=== PATIENT | female | born 1990 | race Caucasian/White ===

== ENCOUNTER → 2019-03-07 13:45 | Outpatient (CLI) | payer OTHER, SELFPAY ==
[2019-03-07 11:28] VITALS: BMI 22.8
[2019-03-07 14:08] LABS: Absolute Lymphocyte Count 2.04 X10^3/uL (0.83-4.51); Absolute Neutrophil Count 6.4 X10^3/uL (2.0-7.7); Basophil# 0.04 X10^3/uL; Basophil% 0.4 % (0-1); Eosinophil# 0.12 X10^3/uL; Eosinophils% 1.3 % (0-5); Hemoglobin 12.2 g/dL (12.0-15.0); Lymphocyte # 2.04 X10^3/ul (4.0); Lymphocyte % 22.4 % (19-41); Mean Corp Hgb Conc 33.9 g/dL (32-36); Mean Corpuscular Hgb 30.3 pg (27.0-32.0); Mean Corpuscular Volume 89.3 fL (81-99); Mean Platelet Vol. 10.1 fl (6.2-12.0); Monocyte# 0.47 X10^3/uL; Monocyte% 5.2 % (0-10); NRBC Flagged by Analyzer 0 % (0-5); Neutrophil # 6.41 X10^3/uL (2.7-7.7); Neutrophil % 70.5 % (47-70); Platelet Count 313 K/mm3 (150-450); RBC Distribution Width CV 12.2 % (11.6-14.6); RBC Distribution Width SD 39.7 fl (35.1-43.9); Red Blood Count 4.03 M/mm3 (4.2-5.4); White Blood Count 9.1 K/mm3 (4.4-11.0)
[2019-03-07 15:19] LABS: HIV - WCH Non-Reactive (Nonreactive); Hepatitis B Surface Antibody Reactive; Rubella IgG 112.9 IU/mL
[2019-03-07 22:58] LABS: Chlamydia Trachomatis by PCR Negative (Negative); Neisserai gonorrhoeae by PCR Negative (Negative); Specimen Processing Control PASS
[2019-03-07 22:59] LABS: Probe Check PASS; Sample Adequacy Control PASS
[2019-03-09 13:36] LABS: Rapid Plasmin Reagin (RPR) NONREACTIVE (NONREACTIVE)
== END ==
PROVIDERS: Family Provider Internal Medicine; PCP Internal Medicine; Referring Provider Obstetrics & Gynecology; Visit Provider Obstetrics & Gynecology
DX: Z34.90 Encounter for supervision of normal pregnancy, unspecified, unspecified trimester (principal)
CPT/HCPCS: 36415; 85025; 86592; 86703; 86706; 86762; 86850; 86900; 87086; 87088; 87491; 87591

== ENCOUNTER → 2019-05-23 08:17 | Outpatient (CLI) | payer OTHER, SELFPAY ==
[2019-04-04 11:39] VITALS: BMI 22.8
[2019-05-05 11:12] VITALS: BMI 24.1
--- NOTE | 2019-05-23 08:19 | US_ITS ---
STUDY: SECOND AND THIRD TRIMESTER OBSTETRICAL ULTRASOUND REASON FOR EXAM: Female, 28 years old anatomy screening exam. LMP: January 02, 2019. TECHNIQUE: Transabdominal TECHNICAL QUALITY: Adequate. PRIOR ULTRASOUND: None. FINDINGS: There is a single intrauterine fetus. The fetus is in a cephalic presentation. There is demonstrated cardiac activity with a heart rate of 140 bpm. There is a normal amniotic fluid volume. The largest amniotic fluid pocket measures 4.2 cm x 5.5 cm. The amniotic fluid index (CAT) is normal. The placenta is posterior in location and is not low lying. There are Grade 0 placental changes. The cervix measures 4.6 cm in length. The bilateral adnexal regions are normal. BIOMETRY: BPD: 4.71 cm: 20 weeks, 1 days HC: 17.45 cm: 19 weeks, 6 days AC: 15.22 cm: 20 weeks, 3 days FL: 3.27 cm: 20 weeks, 1 days CI: 81.6% FL/BPD: 69.45% FL/HC: FL/AC: 21.5% HC/AC: 1.15 age by current US: 20 weeks, 0 days. MATTHIAS by current US: October 10, 2019. Estimated weight: 345 grams, +/- 15 grams, 54 %. Age by LMP: 20 weeks, 1 days. MATTHIAS by LMP: October 09, 2019. ANATOMY: Gender: Female Cranium: Normal lateral ventricles. Normal choroid plexus. Normal cerebellum. Normal cisterna magna. Normal face, nose and lips. Chest: Normal 4-chamber heart. Abdomen/Pelvis: Normal diaphragm. Normal stomach. Normal abdominal wall. Normal cord insertion. Normal 3 vessel cord. Normal kidneys. Normal bladder. Spine: Normal cervical spine. Normal thoracic spine. Normal lumbar spine. Normal sacrum. Extremities: Normal bilateral upper extremities. Normal bilateral lower extremities. US/OB Anatomy Scan IMPRESSION: Single live intrauterine gestation with mean gestational age of 20 weeks. Electronically Signed: Aki Rodriguez, at 15:36 EDT , Service support ,
== END ==
PROVIDERS: Family Provider Internal Medicine; PCP Internal Medicine; Referring Provider Nurse Practitioner Women's Health; Visit Provider Nurse Practitioner Women's Health
DX: Z36.9 Encounter for antenatal screening, unspecified (principal)
CPT/HCPCS: 76805

== ENCOUNTER → 2019-07-14 08:49 | Outpatient (CLI) | payer OTHER, SELFPAY ==
[2019-07-14 08:15] VITALS: BMI 24.1
[2019-07-14 09:21] LABS: Absolute Lymphocyte Count 1.95 X10^3/uL (0.83-4.51); Absolute Neutrophil Count 6.3 X10^3/uL (2.0-7.7); Basophil# 0.02 X10^3/uL; Basophil% 0.2 % (0-1); Eosinophil# 0.13 X10^3/uL; Eosinophils% 1.4 % (0-5); Hematocrit 34.5 % (37-47); Hemoglobin 11.5 g/dL (12.0-15.0); Lymphocyte # 1.95 X10^3/ul (4.0); Lymphocyte % 21.5 % (19-41); Mean Corp Hgb Conc 33.3 g/dL (32-36); Mean Corpuscular Hgb 30.4 pg (27.0-32.0); Mean Corpuscular Volume 91.3 fL (81-99); Mean Platelet Vol. 9.9 fl (6.2-12.0); Monocyte# 0.65 X10^3/uL; Monocyte% 7.2 % (0-10); NRBC Flagged by Analyzer 0 % (0-5); Neutrophil # 6.28 X10^3/uL (2.7-7.7); Neutrophil % 69.3 % (47-70); Platelet Count 294 K/mm3 (150-450); RBC Distribution Width CV 12.6 % (11.6-14.6); RBC Distribution Width SD 41.9 fl (35.1-43.9); Red Blood Count 3.78 M/mm3 (4.2-5.4); White Blood Count 9.1 K/mm3 (4.4-11.0)
[2019-07-14 09:33] LABS: Glucose Challenge Gest 1H 50g 57 mg/dL (70-140)
== END ==
PROVIDERS: Family Provider Internal Medicine; PCP Internal Medicine; Referring Provider Obstetrics & Gynecology; Visit Provider Obstetrics & Gynecology
DX: Z34.90 Encounter for supervision of normal pregnancy, unspecified, unspecified trimester (principal); Z3A.00 Weeks of gestation of pregnancy not specified
CPT/HCPCS: 36415; 82950; 85025

== ENCOUNTER → 2019-08-07 09:10 | Outpatient (CLI) | payer OTHER, SELFPAY ==
[2019-08-04 08:03] VITALS: BMI 24.1
[2019-08-07 10:27] LABS: Hepatitis B Surface Antigen Non-Reactive (Nonreactive)
== END ==
PROVIDERS: Family Provider Internal Medicine; PCP Internal Medicine; Referring Provider Obstetrics & Gynecology; Visit Provider Obstetrics & Gynecology
DX: Z34.92 Encounter for supervision of normal pregnancy, unspecified, second trimester (principal); Z3A.27 27 weeks gestation of pregnancy
CPT/HCPCS: 36415; 87340

== ENCOUNTER → 2019-09-15 | Outpatient (CLI) | payer OTHER, SELFPAY ==
[2019-09-15 08:46] VITALS: BMI 24.1
== END | disposition home or self-care (01) ==
LOC: LABSPEC 13:37
PROVIDERS: PCP Internal Medicine; Referring Provider Obstetrics & Gynecology; Visit Provider Obstetrics & Gynecology
DX: Z34.93 Encounter for supervision of normal pregnancy, unspecified, third trimester (principal); Z3A.36 36 weeks gestation of pregnancy
CPT/HCPCS: 87081

== ENCOUNTER → 2019-09-18 11:48 | Outpatient (CLI) | payer OTHER, SELFPAY ==
[2019-09-15 08:46] VITALS: BMI 24.1
--- NOTE | 2019-09-18 11:50 | US_ITS ---
STUDY: SECOND AND THIRD TRIMESTER OBSTETRICAL ULTRASOUND REASON FOR EXAM: Female, 29 years old GROWTH -SMALL FOR DATES LMP: January 02, 2019. TECHNIQUE: Transabdominal TECHNICAL QUALITY: Adequate. PRIOR ULTRASOUND: Comparison is made with prior examination dated May 23, 2019. FINDINGS: There is a single intrauterine fetus. The fetus is in a cephalic presentation. There is demonstrated cardiac activity with a heart rate of 158 bpm. There is a normal amniotic fluid volume. The largest amniotic fluid pocket measures 5.6 cm. The amniotic fluid index (CAT) is 13.2 cm. The placenta is anterior in location and is not low lying. There are Grade 1 placental changes. The cervix measures 3.5 cm in length. The bilateral adnexal regions are normal. BIOMETRY: BPD: 8.8 cm: 35 weeks, 5 days HC: 32.4 cm: 36 weeks, 5 days AC: 33.1 cm: 37 weeks, 0 days FL: 7.2 cm: 36 weeks, 5 days CI: 80% FL/BPD: 81% FL/HC: FL/AC: 22% HC/AC: 0.98 age by current US: 36 weeks, 4 days. MATTHIAS by current US: October 12, 2019. Estimated weight: 3009 grams, +/- 439 grams, 48 %. age by prior US: 36 weeks, 6 days. MATTHIAS by prior US: October 10, 2019. Age by LMP: 37 weeks, 0 days. MATTHIAS by LMP: October 09, 2019. US/OB Limited With Biometrics IMPRESSION: Single live intrauterine gestation with a mean gestational age of 36 weeks and 6 days. The measurements obtained today fall within the normal expected range. Electronically Signed: Aki Rodriguez, at 15:30 EST , Service support ,
== END ==
PROVIDERS: PCP Internal Medicine; Referring Provider Obstetrics & Gynecology; Visit Provider Obstetrics & Gynecology
DX: O36.5930 Maternal care for other known or suspected poor fetal growth, third trimester, not applicable or unspecified (principal); Z3A.36 36 weeks gestation of pregnancy
CPT/HCPCS: 76816

== ENCOUNTER → 2019-09-29 10:53 | Outpatient (CLI) | payer OTHER, SELFPAY ==
[2019-09-29 09:05] VITALS: BMI 28.7
--- NOTE | 2019-09-29 11:09 | US_ITS ---
STUDY: SECOND AND THIRD TRIMESTER OBSTETRICAL ULTRASOUND REASON FOR EXAM: Female, 29 years old CAT ONLY LMP: January 02, 2019. TECHNIQUE: Transabdominal TECHNICAL QUALITY: Adequate. PRIOR ULTRASOUND: Comparison is made with prior examination dated September 18, 2019. FINDINGS: There is a single intrauterine fetus. The fetus is in a cephalic presentation. There is demonstrated cardiac activity with a heart rate of 153 bpm. There is a normal amniotic fluid volume. The largest amniotic fluid pocket measures 2.3 cm. The amniotic fluid index (CAT) is 7.1 cm. The placenta is posterior in location and is not low lying. There are Grade 2 placental changes. The cervix measures 4.2 cm in length. The adnexal regions are not visualized. age by prior US: 38 weeks, 1 days. MATTHIAS by prior US: October 12, 2019. Age by LMP: 38 weeks, 4 days. MATTHIAS by LMP: October 09, 2019. US/OB Limited (No Biometrics) IMPRESSION: Amniotic fluid index measures 7.1 cm. The physician''s office was notified. Electronically Signed: Aki Rodriguez, at 12:19 EST , Service support ,
== END ==
PROVIDERS: PCP Internal Medicine; Referring Provider Obstetrics & Gynecology; Visit Provider Obstetrics & Gynecology
DX: O26.843 Uterine size-date discrepancy, third trimester (principal); Z3A.38 38 weeks gestation of pregnancy
CPT/HCPCS: 76815

== ENCOUNTER 2019-10-03 13:57 | Outpatient (CLI) | payer OTHER, SELFPAY ==
[2019-09-29 09:50] VITALS: BMI 24.1
[2019-10-03 14:06] VITALS: BMI 28.7
[2019-10-03 14:09] VITALS: TEMP 98.5
[2019-10-03 14:10] VITALS: BP 117/72; PULSE 84
[2019-10-03 14:24] VITALS: PULSE 78; O2SAT 97
--- NOTE | 2019-10-03 14:43 | US_ITS ---
STUDY: SECOND AND THIRD TRIMESTER OBSTETRICAL ULTRASOUND - LIMITED REASON FOR EXAM: Female, 29 years old. Growth. LMP: January 02, 2019. PRIOR ULTRASOUND: May 23, 2019, September 18, 2019 and September 29, 2019. TECHNIQUE: Transabdominal TECHNICAL QUALITY: Adequate. FINDINGS: There is a single intrauterine fetus. The fetus is in a cephalic presentation. There is demonstrated cardiac activity with a heart rate of 140 bpm. There is a normal amniotic fluid volume. The largest amniotic fluid pocket measures 5.23 cm. The amniotic fluid index (CAT) is 9.87 cm. The placenta is fundal in location. There are Grade 2 placental changes. The cervix is obscured. BIOMETRY: BPD: 8.94 cm: 36 weeks, 2 days HC: 32.8 cm: 37 weeks, 2 days AC: 5.03 cm: 39 weeks, 0 days FL: 7.49 cm: 38 weeks, 3 days Age by LMP: 39 weeks, 1 days. MATTHIAS by LMP: October 09, 2019.. age by prior US: 39 weeks, 0 days. MATTHIAS by prior US: October 10, 2019. age by current US: 37 weeks, 6 days. MATTHIAS by current US: October 18, 2019. Estimated weight: 3438 grams, +/- 502 grams, 40 percentile. US/OB Limited With Biometrics IMPRESSION: 1. Live single intrauterine of 37 weeks, 6 days. MATTHIAS is October 18, 2019. This lags approximately one week behind expected gestational age by initial ultrasound. 2. EFW of 3438 g. 3. CAT of 9.87 cm. 4. Fundal grade 2 placenta. 5. Vertex presentation. Electronically Signed: Yanick Reyes DO at 17:44 EST Tel [phone], Service support ,
--- NOTE | 2019-10-05 15:03 | OB.TRI.PN ---
Progress Notes Date of Service: 10/03/19 Progress Note: FHT: 130 Moderate variability reactive no decelerations category I tracing [place]: no regular Contractions decreased movement aimee 9.8 cm fu in office Multi Select Codes - Urinary/Genital Urinary/Genital CPT Codes: 83370-24 non-stress test Interp
== END 2019-10-03 17:45 | disposition home or self-care (01) ==
LOC: WPOUT 13:58 → OBT 13:59
PROVIDERS: PCP Internal Medicine; Referring Provider Obstetrics & Gynecology; Visit Provider Obstetrics & Gynecology
DX: O36.8130 Decreased fetal movements, third trimester, not applicable or unspecified (principal); Z3A.37 37 weeks gestation of pregnancy
CPT/HCPCS: 59025; 59050; 76816; 99218; G0378

== ENCOUNTER 2019-10-16 18:55 | Inpatient (IN) | payer OTHER, SELFPAY ==
[2019-10-11 09:57] VITALS: BMI 28.7
[2019-10-16 19:26] VITALS: BP 129/75; PULSE 101
[2019-10-16 19:27] VITALS: TEMP 36.9; O2SAT 98
[2019-10-16] MEDS: Lactated Ringers 1,000 ML 50 ML IV (19:40)
[2019-10-16 19:47] VITALS: BMI 29.0
[2019-10-16] MEDS: miSOPROStol 25 MCG TABLET VAGINAL (20:35)
[2019-10-16 20:36] LABS: Absolute Lymphocyte Count 2.43 X10^3/uL (0.83-4.51); Absolute Neutrophil Count 7.5 X10^3/uL (2.0-7.7); Basophil# 0.02 X10^3/uL; Basophil% 0.2 % (0-1); Eosinophils% 0.9 % (0-5); Hematocrit 35.5 % (37-47); Hemoglobin 11.7 g/dL (12.0-15.0); Lymphocyte # 2.43 X10^3/ul (4.0); Lymphocyte % 22.7 % (19-41); Mean Corpuscular Hgb 29.7 pg (27.0-32.0); Mean Corpuscular Volume 90.1 fL (81-99); Mean Platelet Vol. 11.7 fl (6.2-12.0); Monocyte# 0.64 X10^3/uL; NRBC Flagged by Analyzer 0 % (0-5); Neutrophil # 7.47 X10^3/uL (2.7-7.7); Neutrophil % 69.8 % (47-70); Platelet Count 265 K/mm3 (150-450); RBC Distribution Width CV 13.1 % (11.6-14.6); RBC Distribution Width SD 42.7 fl (35.1-43.9); Red Blood Count 3.94 M/mm3 (4.2-5.4); White Blood Count 10.7 K/mm3 (4.4-11.0)
--- NOTE | 2019-10-16 20:41 | HP.PCM_ITS ---
- Problem List (1) Post-dates Status: Acute (2) Status: Acute Qualifiers: Comment: nipt and carrier screening negative. declined afp screen. nl anatomy. growth normal (3) Supervision of normal Status: Acute Qualifiers: Comment: PRR MATTHIAS 10/09/19 Girl Beverley Miky(Corey Marcos) (4) Kidney stone Status: Resolved History and Physical Date of Admission: 10/16/19 Intake Vital Signs 10/11/19 BMI 28.7 10/11/19 Height 5 ft 1 in 10/11/19 Weight: 153 lb 10/11/19 BMI 28.9 10/11/19 BP 122/86 H Intake Visit Reasons: 40 WK OB Chief Business Officer Required: No Is patient in pain?: No Allergies cefdinir [From Omnicef] Allergy (Unknown, Verified 10/11/19 09:50) Hives Medications multivitamin no.47-iron fum 27 mg-folate no.1 1 mg-dha 300 mg capsule cap PO cap 03/07/19 [History Confirmed 10/11/19] Last Menstral Period: 01/02/19 PFSH PFSH Medical History Kidney stone (Resolved) Surgical History History of extraction of renal calculus (Acute) Family History Grandmother Breast cancer Grandmother Breast cancer Social History (Updated 10/11/19 @ 10:[address] 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 She denies any vb lof good fm no regular ctx. OB Visit MATTHIAS Calculator Estimated Delivery Date Method Current WG Current Estimate 10/09/19 LMP (Certain) 40w 2d Other Estimates 10/10/19 Ultrasound #1 40w 1d Expected Delivery Route/Plan Labor Preferences- labor support person: Miky pain management options preferred: epidural maybe? cut cord/dad catch: yes : yes PP control planned: pill discussed possible routes of delivery and associated risks: discussed no questions special requests: no Specific Issue/Plans flu vaccine: given tdap vaccine: given rhogam: na LARC form signed: decline movement and labor precautions reviewed. Problem list reviewed and updated with the most current plan of care details and appropriate orders placed. Relevant counseling for the gestational age provided. Continue routine care and follow up unless otherwise noted in visit notes/problem list details Initial Weight: 121 lb Date EGA Weight BP Urine Prot Glucose FHR FuHt Pres Dilation Effaced St Visit Note 03/07/19 9w 1d 121 lb (+0 oz) 170 04/04/19 13w 1d 122 lb 1 oz (+1 lb 1 oz) 116/70 Negative Negative 157 Still some nausea. NO VB, LOF. 05/05/19 17w 4d 126 lb (+5 lb) 118/68 Negative Negative 150 06/02/19 21w 4d 131 lb 6 oz (+10 lb 6 oz) 114/68 Negative Negative 145 21 no vb lof good fm n oreg ctx reviewed us results 07/14/19 27w 4d 140 lb (+19 lb) 130/82 140 28 no vb lof good fm n oreg ctx. 08/04/19 30w 4d 143 lb (+22 lb) 107/70 Negative Negative 145 30 SM- no vb lof good fm no reg ctx 08/18/19 32w 4d 147 lb (+26 lb) 102/68 Negative Negative 140 32 Cephalic SM- no vb lof good fm no regular ctx. 09/01/19 34w 4d 148 lb 4 oz (+27 lb 4 oz) 106/68 Negative Negative 145 33 Cephalic SM- no vb lof good fm no regular ctx 09/15/19 36w 4d 149 lb (+28 lb) 110/60 Negative Negative 145 34 Cephalic SM- no vb lof good fm no regular ctx 09/22/19 37w 4d 152 lb (+31 lb) 112/70 Negative Negative 140 36 Cephalic SM- no vb lof good fm no regular ctx 09/29/19 38w 4d 152 lb (+31 lb) 110/76 Negative Negative 140 35 Cephalic SM- no vb lof good fm no reg ctx get growth us 10/06/19 39w 4d 152 lb (+31 lb) 120/80 Negative Negative 140 36 Cephalic 1.5 60 -2 SM- no vb lof good fm no regular ctx 10/11/19 40w 2d 153 lb (+32 lb) 122/86 Negative Negative 140 3 38 Cephalic 1.5 60 -2 SM- no vb lof good fm no regular ctx plan IOL 41 weeks Notes Visit Date: 10/11/19 ??No visit notes to display Visit Date: 10/06/19 ??No visit notes to display Visit Date: 09/29/19 ??No visit notes to display Visit Date: 09/22/19 ??No visit notes to display Visit Date: 09/15/19 ??No visit notes to display Visit Date: 09/01/19 ??No visit notes to display Visit Date: 08/18/19 ??No visit notes to display Visit Date: 08/04/19 ??No visit notes to display Visit Date: 07/14/19 ??no vb lof good fm n oreg ctx. ??Amy Mccabe MD on 07/14/19 Visit Date: 06/02/19 ??no vb lof good fm n oreg ctx reviewed us results ??Amy Mccabe MD on 06/02/19 Visit Date: 05/05/19 ??No visit notes to display Visit Date: 04/04/19 ??Still some nausea. NO VB, LOF. ??ALY Keller on 04/04/19 Visit Date: 03/07/19 ??No visit notes to display ACOG First Trimester First Trimester: Second Trimester Second Trimester: Signs and Symptoms of Labor, Selecting a care provider, Reproductive Life Planning, Care Planning, Tobacco Cessation, Depression/Anxiety and Intimate Partner Violence Third Trimester Third Trimester: Pain Management Plans, Labor support person(s), Immediate Larc, Movement Monitoring and Feeding Yes ; discussed Trial of Labor after Counseling or discussed Circumcision preference Diagnostics Diagnostics Diagnostics Glucose 1 Hr 50 gm 57 mg/dL (70-140) L 07/14/19 Hgb 11.5 g/dL (12.0-15.0) L 07/14/19 Hct 34.5 % (37-47) L 07/14/19 Details: HIV: Urine Culture: Sequential Screen: NIPT Screen: ROS Const Reports system reviewed and no additional complaints, except as docu Card Reports system reviewed and no additional complaints, except as docu Resp Reports system reviewed and no additional complaints, except as docu GI Reports system reviewed and no additional complaints, except as docu, Reports nausea Reports system reviewed and no additional complaints, except as docu Musc Reports system reviewed and no additional complaints, except as docu Exam Const General: cooperative, healthy appearing, comfortable, anxious HENSD Head: normal to inspection Nose: external nose normal Face and sinus: normal facial exam Neck Neck: normal visual inspection, full ROM, no lymphadenopathy Thyroid: thyroid normal Chest Chest palpation & inspection: normal inspection of the chest Resp Effort & Inspection: normal respiratory effort GI Inspection: normal to inspection Palpation: soft, other (gravid uterus) Other: infant vertex and appropriate size for gestational age Other: Cervical Exam: Extrem General: pedal edema Results POC Urinalysis 2 Dip (Clinic) Office Urine Glucose Negative Last Edit by Juliana Hutchinson on 10/11/19 10:02 Office Urine Protein Negative Last Edit by Juliana Hutchinson on 10/11/19 10:02 Assessment & Plan Problems 1. 40 weeks gestation of Z3A.40 nipt and carrier screening negative. declined afp screen. nl anatomy. growth normal 2. Encounter for supervision of normal first in first trimester Z34.01 PRR MATTHIAS 10/09/19 Girl Beverley Miky(Corey Marcos) Patient presents IOL, plan management for , pitocin/AROM after cytotec Pain management: plans epidural. GBS negative. Management of any complications: none I have reviewed the [facility] and made any clinically relevant updates. Orders Orders: POC Urinalysis 2 Dip (Clinic) Today Coding Level of Care Code OB Routine Diagnoses 40 weeks gestation of Z3A.40 ??Weeks of gestation: 40 weeks Encounter for supervision of normal first in first trimester Z34.01 ??Normal : normal first ??Trimester: first trimester
[2019-10-16 22:11] VITALS: BP 126/73; PULSE 74; TEMP 37.1
[2019-10-17] VITALS (67 sets, daily range): BP systolic 72–142; BP diastolic 36–99; PULSE 69–157; TEMP 36–37.7; O2SAT 86–100
[2019-10-17] MEDS: miSOPROStol 50 MCG TABLET VAGINAL (00:34)
[2019-10-17] MEDS: 0.9% Saline Lock 10 ML Syringe IV ×2 (03:53→04:38)
[2019-10-17] MEDS: Ondansetron 4 MG/2 ML Vial IV (03:53)
[2019-10-17] MEDS: fentaNYL 100 MCG/2 ML Ampul IV (04:38)
[2019-10-17] MEDS: Lactated Ringers 500 ML 999 ML IV ×4 (05:36→17:01)
[2019-10-17] MEDS: Lactated Ringers 1,000 ML 200 ML IV ×2 (08:03→15:44)
[2019-10-17] MEDS: fentaNYL-bupivacaine (epidural) 100 ML BAG EPIDURAL ×2 (08:12→13:55)
[2019-10-17] MEDS: Oxytocin 30 units/NS 500 ml 30 UNITS/500 ML IV.SOLN IV (13:06)
--- NOTE | 2019-10-17 17:48 | OP.PCM_ITS ---
Problem List (1) Post-dates Status: Acute (2) Status: Acute Qualifiers: Comment: nipt and carrier screening negative. declined afp screen. nl anatomy. growth normal (3) Supervision of normal Status: Acute Qualifiers: Comment: PRR MATTHIAS 10/09/19 Liv Bolaños(Corey Marcos) Report of Operation Date of Procedure: 10/17/19 Pre-Operative Diagnosis: iol postdates Post-Operative Diagnosis: same Type of Anesthesia:: Epidural Vaginal Delivery Maternal Presentation: Medically Indicated Induction iol Method of Induction: Pitocin, Cytotec Medical Reason for Induction: Post term Amniotic Membrane Rupture Type: Artificial Amniotic Fluid Description: Clear Final MATTHIAS: 10/09/19 Gestational age: 41 Weeks and 1 Days Date of Procedure: 10/17/19 Pre-Operative Diagnosis: iol Post-Operative Diagnosis: same Surgery/ Procedure Performed: Spontaneous Vaginal Delivery Type of Anesthesia: Epidural Description of Procedure: Patient began pushing and delivered the head in the COSME presentation. The head was delivered atraumatically and a loose nuchal cord ?1 was identified and e asily reduced over the 's head. The anterior and posterior shoulders delivered without complication followed by the rest of the infant and the was placed on the maternal abdomen. Delayed cord clamping was employed for approximately 60 seconds. Cord was clamped and cut and gentle traction was applied to the cord and the placenta delivered spontaneously immediately following it was noted to be intact with three-vessel cord. The perineum and vagina were inspected and noted to have a small first-degree perineal laceration that was repaired in the usual fashion with 3-0 Vicryl Rapide =. EBL was 150 cc. Patient and tolerated delivery well. Presentation: COSME Placental Delivery Description: Spontaneous Cord Vessel Description: 3 Vessels Nuchal Cord Compression: With compression Cord Entanglement: None Estimated Blood Loss: 150 Infant A gender: Female Episiotomy Description: None Laceration: Midline, Perineal Extension/lac, 1st degree Medications given after delivery: IV Pitocin Complications: None Multi Select Codes - Urinary/Genital Urinary/Genital CPT Codes: 05666 Vaginal Delivery [facility]
[2019-10-17] MEDS: Oxytocin 30 units/NS 500 ml 30 UNITS/500 ML IV.SOLN 334 UNITS IV (19:06)
[2019-10-17] MEDS: Naproxen 250 MG Tablet 500 MG PO (21:26)
[2019-10-18] VITALS (12 sets, daily range): BP systolic 108–128; BP diastolic 61–69; PULSE 81–96; RESP 14–18; TEMP 36.2–36.4; O2SAT 96–98
--- NOTE | 2019-10-18 04:49 | NURSING ---
report received from mika [facility]. this rn to assume care of pt at this time.
--- NOTE | 2019-10-18 08:54 | PCM.PN.OB ---
Patient Problems: Active and Suspected Problems (Last Reviewed 10/11/19 @ 09:49 by Juliana Hutchinson) Post-dates (Acute) Subjective: Doing well, no complaints.Pain controlled. Denies CP, SOB, N,V. Ambulating well, tolerating po. Lochia moderate, going well. - Physical Exam Vitals/I&O's: Vital Signs Temp Pulse Resp BP Pulse Ox 97.3 F L 85 16 117/65 98 10/18/19 08:10 10/18/19 08:14 10/18/19 08:10 10/18/19 08:14 10/18/19 03:30 Oxygen Delivery Method Room Air Weight: 153 lb 6.4 oz Body Mass Index (BMI) 29.0 Intake and Output for Last 24 Hours 10/16/19 10/17/19 10/18/19 23:59 23:59 23:59 Intake Total 6814.99 / 6814.99 Output Total 700 / 700 1020 / 1020 Balance -700 / -700 5794.99 / 5794.99 General: Alert, Oriented x3 Abdomen: Soft, Non Tender, - - FF below U Current Medications Acetaminophen (Tylenol) 1,000 mg PO Q8H PRN PRN PRN Reason: Pain Score 1-3/10 Bisacodyl (Dulcolax) 10 mg RECTAL UD PRN PRN Reason: If no BM Dibucaine (Dibucaine) 1 applic TOPICAL TID PRN PRN; Protocol PRN Reason: Discomfort Hydrocortisone (Hytone) 1 applic TOPICAL TID PRN PRN; Protocol PRN Reason: Discomfort Methylergonovine Maleate (Methergine) 0.2 mg IM X1 PRN PRN Reason: Excess bleeding/uterine atony Naproxen (Naprosyn) 500 mg PO Q8H PRN PRN PRN Reason: Pain Score 1-3/10 Last Admin: 10/17/19 21:26 Dose: 500 mg Documented by: Ondansetron HCl (Zofran) 4 mg IV Q4H PRN PRN PRN Reason: Nausea Oxycodone HCl (Oxyir) 5 - 10 mg PO Q4H PRN PRN PRN Reason: Pain Score 4-10/10 Senna/Docusate Sodium (Senokot-S, Dorothy-Colace) 1 - 2 tablet PO DAILY PRN PRN PRN Reason: Constipation Simethicone (Mylicon) 80 mg PO PCHS PRN PRN Reason: Indigestion/Stomach pain Sodium Chloride () 5 - 15 ml IV UD PRN PRN Reason: SALINE FLUSH Medical Necessity - Tobacco Use Smoking Status: Former smoker Assessment/Plan All Active Problems (Last Reviewed 10/11/19 @ 09:49 by Juliana Hutchinson) Post-dates (Acute) (Acute) Supervision of normal (Acute) Kidney stone (Resolved) CAT (amniotic fluid index) borderline low (Resolved) s/p PPD # 1 1. routine post delivery care 2. breast feeding- support given 3. rh positive 4. rubella immune
[2019-10-18] MEDS: Acetaminophen 500 MG Tablet 1000 MG PO (14:02)
[2019-10-19 02:56] VITALS: BP 123/65; PULSE 85; RESP 16; TEMP 36.1; O2SAT 99
[2019-10-19 02:57] VITALS: BP 123/64; PULSE 69; O2SAT 98
[2019-10-19] MEDS: Senna/Docusate Sodium 1 Tablet PO (06:24)
[2019-10-19 07:56] VITALS: BP 118/63; PULSE 74
--- NOTE | 2019-10-19 08:12 | PCM.PN.OB ---
Patient Problems: Active and Suspected Problems (Last Reviewed 10/11/19 @ 09:49 by Juliana Hutchinson) Post-dates (Acute) Subjective: Doing well, no complaints.Pain controlled. Denies CP, SOB, N,V. Ambulating well, tolerating po. Lochia moderate, going well. - Physical Exam Vitals/I&O's: Vital Signs Temp Pulse Resp BP Pulse Ox 96.9 F L 74 16 118/63 98 10/19/19 02:56 10/19/19 07:56 10/19/19 02:56 10/19/19 07:56 10/19/19 02:57 Oxygen Delivery Method Room Air Weight: 153 lb 6.4 oz Body Mass Index (BMI) 29.0 Intake and Output for Last 24 Hours 10/17/19 10/18/19 10/19/19 23:59 23:59 23:59 Intake Total 6814.99 / 6814.99 Output Total 1020 / 1020 Balance 5794.99 / 5794.99 General: Alert, Oriented x3 Abdomen: Soft, Non Tender, Non-Distended, - - FF below U Current Medications Acetaminophen (Tylenol) 1,000 mg PO Q8H PRN PRN PRN Reason: Pain Score 1-3/10 Last Admin: 10/18/19 14:02 Dose: 1,000 mg Documented by: Bisacodyl (Dulcolax) 10 mg RECTAL UD PRN PRN Reason: If no BM Dibucaine (Dibucaine) 1 applic TOPICAL TID PRN PRN; Protocol PRN Reason: Discomfort Hydrocortisone (Hytone) 1 applic TOPICAL TID PRN PRN; Protocol PRN Reason: Discomfort Methylergonovine Maleate (Methergine) 0.2 mg IM X1 PRN PRN Reason: Excess bleeding/uterine atony Naproxen (Naprosyn) 500 mg PO Q8H PRN PRN PRN Reason: Pain Score 1-3/10 Last Admin: 10/17/19 21:26 Dose: 500 mg Documented by: Ondansetron HCl (Zofran) 4 mg IV Q4H PRN PRN PRN Reason: Nausea Oxycodone HCl (Oxyir) 5 - 10 mg PO Q4H PRN PRN PRN Reason: Pain Score 4-10/10 Senna/Docusate Sodium (Senokot-S, Dorothy-Colace) 1 - 2 tablet PO DAILY PRN PRN PRN Reason: Constipation Last Admin: 10/19/19 06:24 Dose: 2 tablet Documented by: Simethicone (Mylicon) 80 mg PO PCHS PRN PRN Reason: Indigestion/Stomach pain Sodium Chloride () 5 - 15 ml IV UD PRN PRN Reason: SALINE FLUSH Medical Necessity - Tobacco Use Smoking Status: Former smoker Assessment/Plan All Active Problems (Last Reviewed 10/11/19 @ 09:49 by Juliana Hutchinson) Post-dates (Acute) (Acute) Supervision of normal (Acute) Kidney stone (Resolved) CAT (amniotic fluid index) borderline low (Resolved) s/p PPD # 2 1. routine post delivery care 2. breast feeding- support given 3. rh positive 4. rubella immune 5. home today
[2019-10-19 08:13] VITALS: BP 118/63; PULSE 74; RESP 16; TEMP 36.3; O2SAT 98
--- NOTE | 2019-10-19 08:13 | DCINST_ITS ---
Additional Instructions: If you experience any of the following, contact your healthcare provider. * Bleeding that soaks a pad every hour for 2 hours * Fever 100.4 or higher * Unrelieved incision or abdominal pain * Swelling, redness, discharge or bleeding from your incision or episiotomy site * Your incision begins to separate * Problems urinating (including inability to urinate or burning while urinating). * Visual changes * Severe headache * Flu-like symptoms * Pain or redness in one of both of your breasts * Pain, warmth, tenderness or swelling in your legs, especially the calf area * Frequent nausea and vomiting * Symptoms of depression or anxiety If you experience any of the following, call 911 or go to the nearest Emergency Room. * Chest pain * Problems breathing * Seizure activity * Partial or complete paralysis of a body part, slurred speech, weakness or drooping of the face, or a sudden inability to walk or hold your balance Allergies/Adverse Reactions: Allergies cefdinir [From Omnicef] Allergy (Unknown, Verified 10/11/19 09:50) Hives Medications to take at Discharge multivitamin no.47-iron fum 27 mg-folate no.1 1 mg-dha 300 mg capsule 1 cap PO DAILY cap 03/07/19 Primary Care Physician: Shivani Horner MD [Primary Care Provider] - Test Results: Test results from this visit will be discussed in further detail at your follow- up appointment, if applicable.
--- NOTE | 2019-10-19 08:13 | PCM.DCVAG ---
Additional Instructions: If you experience any of the following, contact your healthcare provider. Bleeding that soaks a pad every hour for 2 hours Fever 100.4 or higher Unrelieved incision or abdominal pain Swelling, redness, discharge or bleeding from your incision or episiotomy site Your incision begins to separate Problems urinating (including inability to urinate or burning while urinating). Visual changes Severe headache Flu-like symptoms Pain or redness in one of both of your breasts Pain, warmth, tenderness or swelling in your legs, especially the calf area Frequent nausea and vomiting Symptoms of depression or anxiety If you experience any of the following, call 911 or go to the nearest Emergency Room. Chest pain Problems breathing Seizure activity Partial or complete paralysis of a body part, slurred speech, weakness or drooping of the face, or a sudden inability to walk or hold your balance Allergies/Adverse Reactions: Allergies cefdinir [From Omnicef] Allergy (Unknown, Verified 10/11/19 09:50) Hives Medications to take at Discharge multivitamin no.47-iron fum 27 mg-folate no.1 1 mg-dha 300 mg capsule 1 cap PO DAILY cap 03/07/19 Primary Care Physician: Shivani Horner MD [Primary Care Provider] - Test Results: Test results from this visit will be discussed in further detail at your follow-up appointment, if applicable.
[2019-10-19 13:31] VITALS: BP 122/83; PULSE 100
[2019-10-19 13:51] VITALS: BP 122/83; PULSE 100; RESP 16; TEMP 36.3; O2SAT 99
== END 2019-10-19 13:45 | disposition home or self-care (01) | DRG 807 ==
PROVIDERS: Admitting Provider Obstetrics & Gynecology; PCP Internal Medicine; Visit Provider Obstetrics & Gynecology
DX: O48.0 Post-term pregnancy (principal); O69.81X0 Labor and delivery complicated by cord around neck, without compression, not applicable or unspecified; O70.0 First degree perineal laceration during delivery; Z87.891 Personal history of nicotine dependence; Z3A.41 41 weeks gestation of pregnancy; Z37.0 Single live birth
CPT/HCPCS: 59025; 59050; 85025; 86850; 86900; 86901; 99218; J7120; A4216; G0378; J2405

== ENCOUNTER → 2020-04-03 09:25 | Outpatient (CLI) | payer OTHER, SELFPAY ==
[2020-04-03 09:07] VITALS: BMI 29.0
[2020-04-03 12:51] LABS: Vitamin D,25 Hydroxy 28.6 ng/mL
[2020-04-03 13:12] LABS: Thyroid Stim Hormone (TSH) 2.19 uIU/mL (0.358-3.74)
== END ==
PROVIDERS: PCP Internal Medicine; Referring Provider Nurse Practitioner Family; Visit Provider Nurse Practitioner Family
DX: Z00.00 Encounter for general adult medical examination without abnormal findings (principal); E53.8 Deficiency of other specified B group vitamins
CPT/HCPCS: 36415; 82306; 84443

== ENCOUNTER → 2020-07-18 | Outpatient (CLI) | payer OTHER, SELFPAY ==
[2020-07-18 10:49] VITALS: BMI 24.7
[2020-07-22 17:27] LABS: HPV Reflexed? NOT INDICATED
== END | disposition home or self-care (01) ==
LOC: LABSPEC 13:08
PROVIDERS: PCP Internal Medicine; Referring Provider Obstetrics & Gynecology; Visit Provider Obstetrics & Gynecology
DX: Z12.4 Encounter for screening for malignant neoplasm of cervix (principal)
CPT/HCPCS: 88175; G0145

== ENCOUNTER → 2020-11-19 | Outpatient (CLI) | payer OTHER, SELFPAY ==
[2020-11-19 13:39] VITALS: BMI 24.1
[2020-11-19 14:58] LABS: Bacteria 0 SEEN /hpf (None Seen); Mucous, Urine 0 SEEN /hpf (<or=2+); Red Blood Cells-Urine 0 SEEN /hpf (0-5)
[2020-11-19 17:07] LABS: Color, Urine Straw (Yellow); Glucose, Dipstick Normal (Normal); Ketone-Dipstick Negative (Negative); Leukocyte Esterase-Dipstick 100 /ul (Negative); Nitrite-Dipstick Negative (Negative); Occult Blood-Urine 10 /ul (Negative); Protein-Dipstick Negative (Negative); Urine Bilirubin Dipstick Negative (Negative); Urine Clarity Clear (Clear); Urine Urobilinogen Normal (Normal)
[2020-11-19 17:29] LABS: Squamous Epithelial Cells - UA 0-5 SEEN /hpf (5-10)
[2020-11-19 17:31] LABS: White Blood Cells 0-5 SEEN /hpf (0-5)
== END | disposition home or self-care (01) ==
LOC: LABSPEC 14:54
PROVIDERS: PCP Internal Medicine; Referring Provider Nurse Practitioner Family; Visit Provider Nurse Practitioner Family
DX: R10.9 Unspecified abdominal pain (principal)
CPT/HCPCS: 81001; 87086; 87088

== ENCOUNTER → 2021-02-20 16:01 | Outpatient (CLI) | payer OTHER, SELFPAY ==
[2021-02-20 14:24] VITALS: BMI 24.1
[2021-02-20 17:56] LABS: Amphetamine Urine VISTA NEGATIVE (<1000 ng/mL); Barbiturate Urine VISTA NEGATIVE (< 200 ng/mL); Benzodiazepine Urine VISTA NEGATIVE (< 200 ng/mL); Cocaine Urine VISTA NEGATIVE (< 300 ng/mL); Ecstacy Urine VISTA NEGATIVE (< 500 ng/mL); Methadone Urine VISTA NEGATIVE (< 300 ng/mL); PCP Urine VISTA NEGATIVE (< 25 ng/mL); THC Urine VISTA NEGATIVE (< 50 ng/mL); Vista UDS pH Range 6
[2021-02-24 05:06] LABS: Chlamydia By Nucleic Acid AMP Negative (Negative)
[2021-02-24 12:38] LABS: Gonococcus By Nucleic Acid AMP Negative (Negative)
== END ==
PROVIDERS: PCP Internal Medicine; Referring Provider Obstetrics & Gynecology; Visit Provider Obstetrics & Gynecology
DX: Z34.90 Encounter for supervision of normal pregnancy, unspecified, unspecified trimester (principal)
CPT/HCPCS: 80307; 87086; 87088; 87491; 87591

== ENCOUNTER → 2021-03-11 09:41 | Outpatient (CLI) | payer OTHER, SELFPAY ==
[2021-02-20 14:24] VITALS: BMI 24.1
[2021-03-11 10:03] LABS: Absolute Lymphocyte Count 2.09 X10^3/uL (0.83-4.51); Basophil# 0.03 X10^3/uL; Basophil% 0.3 % (0-1); Eosinophil# 0.19 X10^3/uL; Eosinophils% 2.2 % (0-5); Hematocrit 38.2 % (37-47); Hemoglobin 12.8 g/dL (12.0-15.0); Lymphocyte # 2.09 X10^3/ul (0.83-4.51); Lymphocyte % 23.8 % (19-41); Mean Corp Hgb Conc 33.5 g/dL (32-36); Mean Corpuscular Hgb 29.4 pg (27.0-32.0); Mean Corpuscular Volume 87.8 fL (81-99); Mean Platelet Vol. 9.9 fl (6.2-12.0); Monocyte# 0.49 X10^3/uL; Monocyte% 5.6 % (0-10); NRBC Flagged by Analyzer 0 % (0-5); Neutrophil # 5.95 X10^3/uL (2.7-7.7); Neutrophil % 67.6 % (47-70); Platelet Count 351 K/mm3 (150-450); RBC Distribution Width CV 12.2 % (11.6-14.6); RBC Distribution Width SD 39.3 fl (35.1-43.9); Red Blood Count 4.35 M/mm3 (4.2-5.4); White Blood Count 8.8 K/mm3 (4.4-11.0)
[2021-03-11 11:07] LABS: NATERA MAILED SPECIMEN
[2021-03-11 11:13] LABS: HIV - WCH Non-Reactive (Nonreactive); Hepatitis B Surface Antigen Non-Reactive (Nonreactive); Hepatitis C Antibody Non-Reactive (Nonreactive); Rubella IgG Reactive (Nonreactive); Syphilis Antibodies Non-reactive
== END ==
PROVIDERS: PCP Internal Medicine; Referring Provider Obstetrics & Gynecology; Visit Provider Obstetrics & Gynecology
DX: Z34.90 Encounter for supervision of normal pregnancy, unspecified, unspecified trimester (principal)
CPT/HCPCS: 36415; 85025; 86703; 86762; 86780; 86803; 86850; 86900; 86901; 87340

== ENCOUNTER → 2021-05-07 12:25 | Outpatient (CLI) | payer OTHER, SELFPAY ==
[2021-03-17 10:15] VITALS: BMI 24.1
--- NOTE | 2021-05-07 12:25 | US_ITS ---
STUDY: SECOND AND THIRD TRIMESTER OBSTETRICAL ULTRASOUND REASON FOR EXAM: Female, 30 years old anatomy LMP: 12/24/2020. TECHNIQUE: Transabdominal and Transvaginal TECHNICAL QUALITY: Adequate. PRIOR ULTRASOUND: None. FINDINGS: There is a single intrauterine fetus. The fetus is in an transverse lie with the head on the maternal left side. There is demonstrated cardiac activity with a heart rate of 135 bpm. There is a normal amniotic fluid volume. The largest amniotic fluid pocket measures 5.2 cm x 4.3 cm. The amniotic fluid index (CAT) is within normal limits. The placenta is anterior in location and is not low lying. There are Grade 0 placental changes. The cervix measures 4.4 sign of in length. The adnexal regions are not visualized. BIOMETRY: BPD: 4.3 cm: 18 weeks, 6 days HC: 15.6 cm: 18 weeks, 3 days AC: 14 cm: 19 weeks, 2 days FL: 2.9 cm: 18 weeks, 6 days CI: 80% FL/BPD: 68% FL/HC: FL/AC: 21% HC/AC: 1.12 age by current US: 18 weeks, 5 days. MATTHIAS by current US: 10/03/2019. Estimated weight: 276 grams, +/- 41 grams, 45 %. Age by LMP: 19 weeks, 1 days. MATTHIAS by LMP: 09/30/2021. ANATOMY: Gender: Female Cranium: Normal lateral ventricles. Normal choroid plexus. Normal cerebellum. Normal cisterna magna. Normal face, nose and lips. Chest: Normal 4-chamber heart. Abdomen/Pelvis: Normal diaphragm. Normal stomach. Normal abdominal wall. Normal cord insertion. Normal 3 vessel cord. Normal kidneys. Normal bladder. Spine: Normal cervical spine. Normal thoracic spine. Normal lumbar spine. Normal sacrum. Extremities: Normal bilateral upper extremities. Normal bilateral lower extremities. IMPRESSION: Single live uterine gestation with mean gestational age of 18 weeks and 5 days. Electronically Signed: Aki Rodriguez MD at 9:20 EDT , Service support , STUDY: FIRST TRIMESTER OBSTETRICAL ULTRASOUND REASON FOR EXAM: Female, 30 years old . Cervical length measurement. TECHNIQUE: Transvaginal TECHNICAL QUALITY: Adequate. PRIOR ULTRASOUND: None. FINDINGS: Cervical length measures 4.4 cm. US/OB Anatomy Scan IMPRESSION: Cervical length measures 4.4 cm. Electronically Signed: Aki Rodriguez MD at 9:20 EDT , Service support ,
== END ==
PROVIDERS: PCP Internal Medicine; Referring Provider Obstetrics & Gynecology; Visit Provider Obstetrics & Gynecology
DX: Z34.82 Encounter for supervision of other normal pregnancy, second trimester (principal); Z3A.18 18 weeks gestation of pregnancy
CPT/HCPCS: 76805; 76817

== ENCOUNTER → 2021-07-07 07:49 | Outpatient (CLI) | payer OTHER, SELFPAY ==
[2021-07-07 08:09] LABS: Absolute Lymphocyte Count 2.23 X10^3/uL (0.83-4.51); Absolute Neutrophil Count 7.3 X10^3/uL (2.0-7.7); Basophil# 0.04 X10^3/uL; Basophil% 0.4 % (0-1); Eosinophil# 0.22 X10^3/uL; Eosinophils% 2.1 % (0-5); Hematocrit 32.5 % (37-47); Lymphocyte # 2.23 X10^3/ul (0.83-4.51); Lymphocyte % 21.2 % (19-41); Mean Corp Hgb Conc 33.8 g/dL (32-36); Mean Corpuscular Hgb 30.6 pg (27.0-32.0); Mean Corpuscular Volume 90.3 fL (81-99); Mean Platelet Vol. 10.1 fl (6.2-12.0); Monocyte# 0.62 X10^3/uL; Monocyte% 5.9 % (0-10); NRBC Flagged by Analyzer 0 % (0-5); Neutrophil # 7.34 X10^3/uL (2.7-7.7); Neutrophil % 69.8 % (47-70); Platelet Count 286 K/mm3 (150-450); RBC Distribution Width CV 12.7 % (11.6-14.6); RBC Distribution Width SD 41.4 fl (35.1-43.9); White Blood Count 10.5 K/mm3 (4.4-11.0)
[2021-07-07 08:20] LABS: Glucose Challenge Gest 1H 50g 89 mg/dL (70-140)
== END ==
PROVIDERS: Nurse Practitioner Women's Health; PCP Internal Medicine; Referring Provider Obstetrics & Gynecology; Visit Provider Obstetrics & Gynecology
DX: Z13.1 Encounter for screening for diabetes mellitus (principal); Z3A.11 11 weeks gestation of pregnancy
CPT/HCPCS: 36415; 82950; 85025

== ENCOUNTER 2021-08-26 08:32 | Outpatient (CLI) | payer OTHER, SELFPAY ==
--- NOTE | 2021-08-26 08:35 | US_ITS ---
STUDY: SECOND AND THIRD TRIMESTER OBSTETRICAL ULTRASOUND - LIMITED REASON FOR EXAM: Female, 31 years old growth -- 36 weeks LMP: 12/24/2020. PRIOR ULTRASOUND: Comparison is made with prior examination dated 05/07/2021. TECHNIQUE: Transabdominal TECHNICAL QUALITY: Adequate. FINDINGS: There is a single intrauterine fetus. The fetus is in a cephalic presentation. There is demonstrated cardiac activity with a heart rate of 1:30 bpm. There is a normal amniotic fluid volume. The largest amniotic fluid pocket measures 7.94 cm. The amniotic fluid index (CAT) is 15.53 cm. The placenta is anterior in location and is not low lying. There are Grade 0 placental changes. The cervix measures 3.7 cm in length. BIOMETRY: BPD: 8.73 cm: 35 weeks, 2 days HC: 31.43 cm: 35 weeks, 2 days AC: 31.52 cm: 35 weeks, 4 days FL: 6.73 cm: 34 weeks, 5 days Age by LMP: 35 weeks, 0 days. MATTHIAS by LMP: 09/30/2021. age by prior US: 35 weeks, 0 days. MATTHIAS by prior US: 09/30/2021. age by current US: 35 weeks, 2 days. MATTHIAS by current US: 09/28/2021. Estimated weight: 2614 grams, +/- 382 grams, 52 percentile. US/OB Limited With Biometrics IMPRESSION: Single live intrauterine gestation with a mean gestational age of 35 weeks. The measurements obtained today fall within the normal expected range. Electronically Signed: Aki Rodriguez MD at 12:13 EST , Service support ,
== END 2021-08-26 23:59 | disposition short-term general hospital (02) ==
LOC: US 08:33
PROVIDERS: PCP Internal Medicine; Referring Provider Nurse Practitioner Women's Health; Visit Provider Nurse Practitioner Women's Health
DX: O98.519 Other viral diseases complicating pregnancy, unspecified trimester (principal); U07.1 COVID-19; Z3A.00 Weeks of gestation of pregnancy not specified
CPT/HCPCS: 76816

== ENCOUNTER 2021-09-04 16:55 | Outpatient (CLI) | payer OTHER, SELFPAY | END 2021-09-04 23:59 | disposition short-term general hospital (02) | LOC: LABSPEC 16:56 | PROVIDERS: PCP Internal Medicine; Referring Provider Obstetrics & Gynecology; Visit Provider Obstetrics & Gynecology | DX: Z34.80 Encounter for supervision of other normal pregnancy, unspecified trimester (principal) | CPT/HCPCS: 87081 ==

== ENCOUNTER 2021-09-23 08:55 | Outpatient (CLI) | payer OTHER, SELFPAY ==
--- NOTE | 2021-09-23 08:57 | US_ITS ---
STUDY: SECOND AND THIRD TRIMESTER OBSTETRICAL ULTRASOUND REASON FOR EXAM: Female, 31 years old . growth. LMP: 12/24/2020. TECHNIQUE: Transabdominal TECHNICAL QUALITY: Adequate. PRIOR ULTRASOUND: Comparison is made with prior study dated 08/26/2021. FINDINGS: There is a single intrauterine fetus. The fetus is in a cephalic presentation. There is demonstrated cardiac activity with a heart rate of 126 bpm. There is a normal amniotic fluid volume. The largest amniotic fluid pocket measures 4.5 cm. The amniotic fluid index (CAT) is 9.1 cm. The placenta is anterior in location and is not low lying. There are Grade 2 placental changes. The cervix was not measured due to the head positioning. The adnexal regions are not visualized. BIOMETRY: BPD: 9.31 cm: 37 weeks, 6 days HC: 33.5 cm: 38 weeks, 2 days AC: 32.4 cm: 36 weeks, 2 days FL: 7.7 cm: 39 weeks, 1 days CI: 81% FL/BPD: 82% FL/HC: FL/AC: 24% HC/AC: 1.03 age by current US: 37 weeks, 6 days. MATTHIAS by current US: 10/08/2021. Estimated weight: 3236 grams, +/- 485 grams, 33 %. age by prior US: 39 weeks, 2 days. MATTHIAS by prior US: 09/28/2021 Age by LMP: 39 weeks, 0 days. MATTHIAS by LMP: 09/30/2021. US/OB Limited With Biometrics IMPRESSION: Single live intrauterine gestation with a mean gestational age of 39 weeks and 2 days. The measurements obtained today fall within the normal expected range. Electronically Signed: Aki Rodriguez MD at 12:17 EST ,
== END 2021-09-23 23:59 | disposition home or self-care (01) ==
PROVIDERS: PCP Internal Medicine; Referring Provider Obstetrics & Gynecology; Visit Provider Obstetrics & Gynecology
DX: O98.519 Other viral diseases complicating pregnancy, unspecified trimester (principal); U07.1 COVID-19
CPT/HCPCS: 76816

== ENCOUNTER 2021-10-02 13:15 | Inpatient (IN) | payer OTHER, SELFPAY ==
[2021-10-02] VITALS (44 sets, daily range): BP systolic 115–151; BP diastolic 61–79; PULSE 78–108; TEMP 36.4–36.8; O2SAT 91–100
[2021-10-02] MEDS: Lactated Ringers 1,000 ML 50 ML IV (13:45)
[2021-10-02 13:57] LABS: Absolute Lymphocyte Count 2.34 X10^3/uL (0.83-4.51); Absolute Neutrophil Count 8.8 X10^3/uL (2.0-7.7); Basophil# 0.04 X10^3/uL; Basophil% 0.3 % (0-1); Eosinophil# 0.06 X10^3/uL; Eosinophils% 0.5 % (0-5); Hematocrit 34.8 % (37-47); Hemoglobin 11.7 g/dL (12.0-15.0); Lymphocyte # 2.34 X10^3/ul (0.83-4.51); Lymphocyte % 19.7 % (19-41); Mean Corp Hgb Conc 33.6 g/dL (32-36); Mean Corpuscular Hgb 29.3 pg (27.0-32.0); Mean Platelet Vol. 11.5 fl (6.2-12.0); Monocyte# 0.56 X10^3/uL; Monocyte% 4.7 % (0-10); NRBC Flagged by Analyzer 0 % (0-5); Neutrophil % 74.4 % (47-70); Platelet Count 305 K/mm3 (150-450); RBC Distribution Width CV 12.9 % (11.6-14.6); RBC Distribution Width SD 40.5 fl (35.1-43.9); White Blood Count 11.9 K/mm3 (4.4-11.0)
[2021-10-02] MEDS: Oxytocin 30 units/NS 500 ml 30 UNITS/500 ML IV.SOLN IV (14:36)
[2021-10-02] MEDS: Lactated Ringers 500 ML 999 ML IV (18:33)
[2021-10-02] MEDS: fentaNYL-bupivacaine (epidural) 100 ML BAG EPIDURAL (19:31)
[2021-10-02] MEDS: Lactated Ringers 1,000 ML 200 ML IV (22:11)
[2021-10-03] VITALS (35 sets, daily range): BP systolic 108–132; BP diastolic 61–82; PULSE 84–113; RESP 14–18; TEMP 36.4–37.1; O2SAT 96–100
[2021-10-03] MEDS: Oxytocin 30 units/NS 500 ml 30 UNITS/500 ML IV.SOLN 334 UNITS IV (00:40)
--- NOTE | 2021-10-03 00:44 | HP.PCM.OB_ITS ---
HPI - General General Date of Admission: 10/02/21 HPI Narrative FILEMON SANFORD, is a 31y/o G2P!@ 40 weeks 2 days F who presents to L&D on 10/02/2021 for IOL due to oligohydramnios. her was complicated with COVID and she was treated with a baby asa. Otherwise, normal Maternal Data Information MATTHIAS Calculator Estimated Delivery Date Method Current WG Current Estimate 09/30/21 Ultrasound #1 40w 3d Other Estimates 09/23/21 LMP (Certain) 41w 3d [facility] Medical History Kidney stone Home Medications prenat.vits,richard,[id number]-[id number] 1 tab PO DAILY 02/06/21 [History Last Taken 10/01/21 22:00] Allergy/AdvReac Type Severity Reaction Status Date / Time cefdinir [From Omnicef] Allergy Unknown Hives Verified 09/25/21 08:32 Family History Grandmother Breast cancer Grandmother Breast cancer Father CVA (cerebral vascular accident) Hypertension Surgical History History of extraction of renal calculus Social History adopted: No household members: spouse and children number of children: 1 current occupational status: employed 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 Date Name GA/Weeks Outcome Route Bth Weight Gen Labor Lgth Anesthesia Del Locatn Provider FOB 10/17/19 Crystal 41 live - full term 6# 8oz Female 15 janine rs epidural [facility] Miky Visit Details Expected Delivery Route/Plan Labor Preferences- CB/BF classes: no labor support person: Miky labor intervention preferences: [] pain management options preferred: epidural cut cord/dad catch: yes : yes PP control planned: OCP discussed possible routes of delivery and associated risks: [] special requests: [] Plans flu vaccine: yes tdap vaccine: yes rhogam: na LARC form signed: yes movement and labor precautions reviewed. Problem list reviewed and updated with the most current plan of care details and appropriate orders placed. Relevant counseling for the gestational age provided. Continue routine care and follow up unless otherwise noted in visit notes/problem list details OB Flowsheet Initial Weight: 130 lb Date -?-?-?-?-?-?-?-?-?-?-?-?- EGA Weight BP Urine Prot -?-?-?-?-?-?-?-?-?-?-?-?- Glucose FHR FuHt Pres Dilation -?-?-?-?-?-?-?-?-?-?-?-?- Effaced St Visit Note 02/20/21 -?-?-?-?-?-?-?-?-?-?-?-?- 8w 2d 130 lb (+0 oz) 106/60 -?-?-?-?-?-?-?-?-?-?-?-?- 160 -?-?-?-?-?-?-?-?-?-?-?-?- GP - CRL 15mm NO T consistent with LMP 03/17/21 -?-?-?-?-?-?-?-?-?-?-?-?- 11w 6d 132 lb 4 oz (+2 lb 4 oz) 110/72 Negative -?-?-?-?-?-?-?-?-?-?-?-?- Negative 155 -?-?-?-?-?-?-?-?-?-?-?-?- GP - no cramping or bleeding. Anatomy ordered. Feeling much better with this 04/15/21 -?-?-?-?-?-?-?-?-?-?-?-?- 16w 0d 135 lb (+5 lb) 106/60 Negative -?-?-?-?-?-?-?-?-?-?-?-?- Negative 147 -?-?-?-?-?-?-?-?-?-?-?-?- -No VB, LOF. D oing well. Anatomy us at [employer] [facility] scheduled 05/13/21 -?-?-?-?-?-?-?-?-?-?-?-?- 20w 0d 140 lb 2 oz (+10 lb 2 oz) 102/60 Negative -?-?-?-?-?-?-?-?-?-?-?-?- Negative 141 -?-?-?--?-?-?-?-?-?-?-?-?- -No VB, LOF. G ood FM. Nl anatomy US girl. Having sciatic pain, refer Dr Polanco. 06/09/21 -?-?-?-?-?-?-?-?-?-?-?-?- 23w 6d 140 lb 2 oz (+10 lb 2 oz) 102/60 Negative -?-?-?-?-?-?-?-?-?-?-?-?- Negative 154 23 -?-?-?-?-?-?-?-?-?-?-?-?- -No VB, LOF. G ood FM. Plan 28 labs next visit 07/07/21 -?-?-?-?-?-?-?-?-?-?-?-?- 27w 6d 147 lb (+17 lb) 104/80 Negative -?-?-?-?-?-?-?-?-?-?-?-?- Negative 150 28 -?-?-?-?-?-?-?-?-?-?-?-?- - no vb lof go od fm nor egular ctx 07/22/21 -?-?-?-?-?-?-?-?-?-?-?-?- 30w 0d 148 lb 6 oz (+18 lb 6 oz) 104/58 Negative -?-?-?-?-?-?-?-?-?-?-?-?- Negative 146 30 -?-?-?-?-?-?-?-?-?-?-?-?- MH-No VB, LOF. G ood Fm. Nl 28 wk labs 08/19/21 -?-?-?-?-?-?-?-?-?-?-?-?- 34w 0d 149 lb 8 oz (+19 lb 8 oz) 128/70 Negative -?-?-?-?-?-?-?-?-?-?-?-?- Negative 144 34 -?-?-?-?-?-?-?-?-?-?-?-?- MH-No Vb, LOF. G ood FM. Covid since last visit, mild. Start 81mg ASA and growth US at 36 wk ordered. 09/04/21 -?-?-?-?-?-?-?-?-?-?-?-?- 36w 2d 156 lb 6 oz (+26 lb 6 oz) 120/62 Negative -?-?-?-?-?-?-?-?-?-?-?-?- Negative 145 35 -?-?-?-?-?-?-?-?-?-?-?-?- JV- no lof, vagi nal bleeding, or dec fm. GBS collected. normal growth scan last week. taking baby asa. 09/11/21 -?-?-?-?-?-?-?-?-?-?-?-?- 37w 2d 153 lb (+23 lb) 120/81 -?-?-?-?-?-?-?-?-?-?-?-?- 145 37 -?-?-?-?-?-?-?-?-?-?-?-?- SM- no vb lof go od fm no regular ctx gbs neg 09/16/21 -?-?-?-?-?-?-?--?-?-?-?-?- 38w 0d 156 lb (+26 lb) 110/80 -?-?-?-?-?-?-?-?-?-?-?-?- 145 37 -?-?-?-?-?-?-?-?-?-?-?-?- SM- no vb lof go od fm no regular ctx 09/25/21 -?-?-?-?-?-?-?-?-?-?-?-?- 39w 2d 158 lb (+28 lb) 138/82 Negative -?-?-?-?-?-?-?-?-?-?-?-?- Negative 150 38 Cephalic 1 -?-?-?-?-?-?-?-?-?-?-?-?- 50 -2 SM- no vb lof good fm no regular ctx 10/02/21 -?-?-?-?-?-?-?-?-?-?-?-?- 40w 2d 158 lb (+28 lb) 108/62 Negative -?-?-?-?-?-?-?-?-?-?-?-?- Negative 140 2 -?-?-?-?-?-?-?-?-?-?-?-?- 60 -2 SM- low FH checked aimee and 5 cm recommend IOL 10/02/21 -?-?-?-?-?-?-?-?-?-?-?-?- 40w 2d 159 lb 2.78 oz (+29 lb 2.78 oz) 126/76 134/66 122/78 125/76 122/72 127/79 128/78 126/73 129/65 121/68 127/75 151/72 128/74 126/72 120/68 119/71 121/70 115/61 128/75 -?-?-?-?-?-?-?-?-?-?-?-?- -?-?-?-?-?-?-?-?-?-?-?-?- NST FHR Rate Baby A Baseline: 140 Variability:: Moderate Accelerations:: 15 x 15 Decelerations:: None NST Reactive:: Yes FHR Category:: Category I ROS Constitutional Constitutional: Denies change in weight, fatigue, fever(s), headache(s), poor appetite or weakness Eyes Eyes: Denies blurry vision, change in vision, seeing flashes or spots in vision ENT HEENT: Denies dizziness, headache(s), loss taste/smell or sore throat Cardiovascular Cardiovascular: Denies chest pain, dizziness, dyspnea, irregular heart rhythm, leg edema, palpitations, rapid heart rate or vomiting Respiratory/Chest Respiratory/Chest: Denies chest tightness, cough, dyspnea or breast pain Gastrointestinal Gastrointestinal: Denies abdominal pain, anorexia, constipation, cramping, diarrhea, hemorrhoids, vomiting or weight changes Genitourinary Genitourinary: Denies dysuria, flank pain, genital lesions, genital pain, urinary frequency or urinary urgency Musculoskeletal Musculoskeletal: Denies back pain, difficulty walking, joint pain, limited range of motion, muscle cramps or numbness Integumentary Integumentary: Denies lesions or unusual bruising Neurologic Neurologic: Denies abnormal movements, abnormal speech, dizziness, numbness, seizure-like activity or syncope Psychiatric Psychiatric: Denies anxiety, behavioral changes, change in appetite, change in libido, cognitive impairment, confusion, depression, difficulty concentrating, hallucinations or suicidal thoughts Endocrine Endocrinology: Denies excessive sweating, polydipsia or polyuria Hematologic/Lymphatic Hematologic/Lymphatic: Denies easy bleeding, easy bruising or lymphadenopathy Allergic/Immunologic Allergic/Immunologic: Denies itchy eyes, lip swelling, seasonal rhinorrhea, rhinitis, throat swelling, tongue swelling, eczemia, wheezing or asthma Vital Signs Vital Signs Vital Signs: 10/02/21 13:48 10/02/21 13:54 10/02/21 14:41 Temperature 97.8 F Temperature Source Temporal Pulse Rate 108 H 88 Blood Pressure 126/76 H 134/66 H BP Systolic 126 134 BP Diastolic 76 66 Pulse Ox 10/02/21 15:19 10/02/21 16:02 10/02/21 16:05 Temperature 97.6 F L Temperature Source Temporal Pulse Rate 84 82 Blood Pressure 122/78 H 125/76 H BP Systolic 122 125 BP Diastolic 78 76 Pulse Ox 10/02/21 17:29 10/02/21 18:26 10/02/21 18:38 Temperature 97.5 F L Temperature Source Temporal Pulse Rate 88 84 Blood Pressure 122/72 H 127/79 H BP Systolic 122 127 BP Diastolic 72 79 Pulse Ox 10/02/21 18:59 10/02/21 19:04 10/02/21 19:07 Temperature Temperature Source Pulse Rate 87 91 78 Blood Pressure 128/78 H BP Systolic 128 BP Diastolic 78 Pulse Ox 99 100 10/02/21 19:09 10/02/21 19:12 10/02/21 19:14 Temperature Temperature Source Pulse Rate 82 83 87 Blood Pressure 126/73 H BP Systolic 126 BP Diastolic 73 Pulse Ox 100 100 10/02/21 19:18 10/02/21 19:19 10/02/21 19:23 Temperature 98.3 F Temperature Source Temporal Pulse Rate 88 95 89 Blood Pressure 129/65 H 121/68 H BP Systolic 129 121 BP Diastolic 65 68 Pulse Ox 100 10/02/21 19:24 10/02/21 19:27 10/02/21 19:29 Temperature Temperature Source Pulse Rate 91 88 95 Blood Pressure 127/75 H BP Systolic 127 BP Diastolic 75 Pulse Ox 100 99 10/02/21 19:33 10/02/21 19:34 10/02/21 19:38 Temperature Temperature Source Pulse Rate 101 H 86 88 Blood Pressure 151/72 H 128/74 H BP Systolic 151 128 BP Diastolic 72 74 Pulse Ox 100 10/02/21 19:39 10/02/21 19:42 10/02/21 19:44 Temperature Temperature Source Pulse Rate 84 88 97 Blood Pressure 126/72 H BP Systolic 126 BP Diastolic 72 Pulse Ox 99 100 10/02/21 19:49 10/02/21 19:50 10/02/21 19:54 Temperature Temperature Source Pulse Rate 88 90 87 Blood Pressure 120/68 BP Systolic 120 BP Diastolic 68 Pulse Ox 91 99 10/02/21 19:59 10/02/21 20:04 10/02/21 20:09 Temperature Temperature Source Pulse Rate 95 90 94 Blood Pressure BP Systolic BP Diastolic Pulse Ox 100 100 99 10/02/21 20:14 10/02/21 20:19 10/02/21 20:21 Temperature 98.3 F Temperature Source Temporal Pulse Rate 83 97 88 Blood Pressure 119/71 BP Systolic 119 BP Diastolic 71 Pulse Ox 98 98 10/02/21 21:10 10/02/21 21:11 10/02/21 21:16 Temperature 98.1 F Temperature Source Temporal Pulse Rate 88 85 84 Blood Pressure 121/70 H BP Systolic 121 BP Diastolic 70 Pulse Ox 100 100 10/02/21 21:21 10/02/21 21:26 10/02/21 22:16 Temperature 97.9 F Temperature Source Temporal Pulse Rate 88 88 85 Blood Pressure 115/61 BP Systolic 115 BP Diastolic 61 Pulse Ox 100 100 98 10/02/21 23:41 10/02/21 23:42 Temperature 98.2 F Temperature Source Temporal Pulse Rate 90 Blood Pressure 128/75 H BP Systolic 128 BP Diastolic 75 Pulse Ox 99 Weight Weight: 159 lb 2.78 oz Body Mass Index (BMI) 30.0 Physical Exam Const alert, oriented x3, no apparent distress and healthy appearing General Appearance: cooperative; Negative for anxious HEENT normocephalic Face and Sinus: normal facial exam Eyes EOMs intact bilaterally and no scleral icterus General Eye: normal appearance of both eyes Neck full ROM and supple Lymph Lymphatic: no lymphadenopathy noted Chest Chest: abnormal inspection of the chest Resp normal respiratory effort Effort and Inspection: able to speak in complete sentences Cardio regular rate GI soft to palpation and non-tender Inspection: gravid Palpation: soft; Negative for tender external exam normal Amniotic Fluid: ROM+plus Back/Spine no CVA tenderness Extremity normal to inspection, full ROM and no clubbing, cyanosis or edema General Extremity: Negative for calf tenderness or edema Skin Lesions: no lesions Rashes: no rashes Psych mental status grossly normal Labs Labs Labs: Blood Type A POSITIVE Antibody Screen NEGATIVE Hct 34.8 % (37-47) L Hgb 11.7 g/dL (12.0-15.0) L Obstetrics US Syphilis Total Ab Non-reactive Rubella IgG Antibody Reactive (Nonreactive) Hep Bs Antigen Non-Reactive (Nonreactive) Neisseria gonorrhoeae DNA (SMITHA) Negative (Negative) HIV 1&2 Antibody Non-Reactive (Nonreactive) C.trachomatis DNA (PCR) Negative (Negative) Glucose 1 Hr 50 gm 89 mg/dL (70-140) Rhogam given: No Miscellaneous Test Assessment & Plan (1) Encounter for induction of labor: COMMENT: pitocin. AROM PRN. Epi PRN (2) Oligohydramnios in third trimester: COMMENT: 5 cm plan IOL with pitocin (3) COVID-19 affecting , antepartum: COMMENT: 81mg daily, growth US. 08/26 nl growth (4) Sciatic leg pain: COMMENT: refer to Dr Polanco (5) COVID-19 vaccine series completed: (6) : QUALIFIERS: Weeks of gestation: 40 weeks Qualified Code(s): Z3A.40 - 40 weeks gestation of COMMENT: nl anatomy, Prior negative carrier status. NIPT- low risk. decliend ntd screening. GBS neg PLAN: Patient presents IOL, plan management for with pitocin/AROM. Pain management: plans epidural. GBS negative. Management of any complications: none I have reviewed the [facility] and made any clinically relevant updates.
--- NOTE | 2021-10-03 00:47 | OP.PCM_ITS ---
Assessment & Plan (1) Encounter for induction of labor: COMMENT: pitocin. AROM PRN. Epi PRN (2) Oligohydramnios in third trimester: COMMENT: 5 cm plan IOL with pitocin (3) COVID-19 affecting , antepartum: COMMENT: 81mg daily, growth US. 08/26 nl growth (4) Sciatic leg pain: COMMENT: refer to Dr Polanco (5) COVID-19 vaccine series completed: (6) Supervision of other normal : COMMENT: PRR MATTHIAS 09/30/21 Girl Wayne MARY Crystal. Spouse Mkiy (Hemant 4, Corey, 8)'pp (7) : QUALIFIERS: Weeks of gestation: 40 weeks Qualified Code(s): Z3A.40 - 40 weeks gestation of COMMENT: nl anatomy, Prior negative carrier status. NIPT- low risk. decliend ntd screening. GBS neg Maternal Data Information MATTHIAS Calculator Estimated Delivery Date Method Current WG Current Estimate 09/30/21 Ultrasound #1 40w 3d Other Estimates 09/23/21 LMP (Certain) 41w 3d Vaginal Delivery Maternal Presentation Maternal Presentation: Medically Indicated Induction Operative Information Date of Procedure: 10/03/21 Pre-Operative Diagnosis: @ 40 weeks 3 days, oligohydramnios Post-Operative Diagnosis: @ 40 weeks 3 days, oligohydramnios Surgery / Procedure Performed: Spontaneous Vaginal Delivery Type of Anesthesia: Epidural Drain: Preciado to straight drain Estimated Blood Loss: 50cc Time of Delivery: 00:37 Findings Description of Procedure: Patient began pushing and delivered the head in the COSME presentation. The head was delivered atraumatically . The anterior and posterior shoulders delivered without complication followed by the rest of the infant and the infant was placed on the maternal abdomen. Delayed cord clamping was employed for approximately 60 seconds. Cord was clamped and cut and gentle traction was applied to the cord and the placenta delivered spontaneously immediately following it was noted to be intact with three-vessel cord. The perineum and vagina were inspected and noted to have no laceration other than a skid angela on the perinerum. EBL was 50cc. Patient and tolerated deliv woodrow well. Presentation: Vertex Amniotic Membrane Rupture Type: Artificial Time of Membrane Rupture: 1630 Amniotic Fluid Description: Clear Placental Delivery Description: Spontaneous Placenta Disposition: [facility] Cord Vessel Description: 3 Vessels Cord Entanglement: None Infant A Gender: Female (1 minute): 8 (5 minute): 9 Delayed Cord Clamping: Yes Post Vaginal Delivery Medications Given After Delivery: IV Pitocin Episiotomy Description: None Laceration: None Complication Complications: None Multi Select Codes Urinary/Genital Urinary/Genital CPT Codes: 13222 Vaginal Delivery [facility]
--- NOTE | 2021-10-03 00:49 | PCM.DC ---
Discharge Instructions Diet Discharge Diet: No restrictions Activity Discharge Activity: Return to Normal Activity, May Not Drive (while taking narcotic pain medications.) and May Shower May resume sexual activity in: 4-6 weeks Dressing / Incision Call your doctor if your incision/area has: Continuous Slow Oozing, Sudden Increased Bleeding, Increased Pain/ Swelling, Increased Redness and Foul Smelling Discharge Follow Up Care Please Follow Up With: Sada Lee, When: Call [phone] to make an appointment with your doctor in 6 weeks. If you had elevated blood pressure or 4th degree laceration, you will need to be seen in 2 weeks. Test Results: Test results from this visit will be discussed in further detail at your follow-up appointment, if applicable. Discharge Plan Admission Admit Date/Time: 10/02/21 13:15 Attending Provider: Sada Lee Primary Care Provider: Shivani Horner Discharge Orders/Prescriptions Prescriptions: New ibuprofen 800 mg tablet 800 mg PO Q8H PRN (Reason: pain) 7 Days Qty: 30 RF: 0 No Action prenat.vits,richard,[id number] Tablet 1 tab PO DAILY RF: 0 Referrals / Follow Up: Shivani Horner MD [Primary Care Provider] -
[2021-10-03] MEDS: Acetaminophen 500 MG Tablet 1000 MG PO ×2 (01:28→11:52)
[2021-10-03] MEDS: Dibucaine 30 GM Tube 1 APPLIC TOPICAL (03:20)
[2021-10-03] MEDS: Ibuprofen 600 MG Tablet PO ×2 (03:21→11:53)
[2021-10-03] MEDS: Benzocaine/Lanolin/Aloe Vera 1 SPRAY EACH TOPICAL (08:22)
[2021-10-03] MEDS: oxyCODONE 5 MG Tablet PO ×3 (08:39→18:41)
[2021-10-03] MEDS: Senna/Docusate Sodium 1 Tablet PO (08:40)
--- NOTE | 2021-10-03 17:03 | NURSING ---
Bladder scan performed for >999ml post-void. Patient voided 175ml clear, yellow urine. Bladder remains distended. Patient feels pressure, but is not uncomfortable.
[2021-10-03] MEDS: Ketorolac 30 MG/ML Syringe IV (18:45)
[2021-10-03] MEDS: 0.9% Saline Lock 10 ML Syringe IV (18:46)
--- NOTE | 2021-10-03 20:05 | NURSING ---
2005: Pt's heart rate per monitor was 111. This RN felt radial pulse and auscultated heart rate and rate was only 98 bpm. Will continue to monitor closely and call physician with any changes.
[2021-10-04] MEDS: Ketorolac 30 MG/ML Syringe IV ×2 (00:40→06:11)
[2021-10-04] MEDS: 0.9% Saline Lock 10 ML Syringe IV ×2 (00:41→06:12)
[2021-10-04 00:57] VITALS: BP 119/69; PULSE 90
[2021-10-04 01:00] VITALS: BP 119/69; PULSE 90; RESP 16; TEMP 36.8; O2SAT 97
--- NOTE | 2021-10-04 07:53 | PCM.PN.OB ---
Subjective Subjective Patient doing well without complaints. Tolerating PO. Ambulating and swelling decreased in the vulva, cath okay. infant feeding well. Denies chest pain, shortness of breath, calf pain/swelling, fevers, chills, lightheadedness. Objective Data Objective Data Vital Signs: Vital Signs Temp Pulse Resp BP Pulse Ox 98.2 F 90 16 119/69 97 10/04/21 01:00 10/04/21 01:00 10/04/21 01:00 10/04/21 01:00 10/04/21 01:00 Oxygen Delivery Method Room Air Weight: 159 lb 2.78 oz Body Mass Index (BMI) 30.0 Intake & Output: Intake and Output for Last 24 Hours 10/02/21 10/03/21 10/04/21 23:59 23:59 23:59 Intake Total 2084.46 / 2084.46 1125.66 / 1125.66 Output Total 1550 / 1550 3475 / 3475 575 / 575 Balance 534.46 / 534.46 -2349.34 / -2349.34 -575 / -575 Lab / Micro Data Result Diagrams: 10/02/21 13:45 ROS Constitutional Constitutional: Reports systems reviewed and no addt'l complaints, except as documented Cardiovascular Cardiovascular: Reports systems reviewed and no addt'l complaints, except as documented Respiratory/Chest Respiratory/Chest: Reports systems reviewed and no addt'l complaints, except as documented Gastrointestinal Gastrointestinal: Reports systems reviewed and no addt'l complaints, except as documented Physical Exam Const alert, oriented x3 and no apparent distress HEENT Head and Scalp: atraumatic Resp normal respiratory effort GI soft to palpation and non-tender Bimanual Exam - Vag & Uterus: uterus non-tender Uterus Palpation: uterus fundus firm (below Umbilicus) Assessment & Plan (1) care and examination: (2) Swelling of vulva: COMMENT: post delivery, cath to be removed at 11 and dc this evening PLAN: s/p PPD # 1 1. routine post delivery care 2. breast feeding- support given 3. rh positive 4. rubella immune
[2021-10-04 09:26] VITALS: BP 108/62; PULSE 104; RESP 16; TEMP 36.4
[2021-10-04] MEDS: Senna/Docusate Sodium 1 Tablet PO (11:01)
--- NOTE | 2021-10-04 12:34 | NURSING ---
Palmer cath removed at 1105 after 10 cc NS removed from palmer balloon.
[2021-10-04] MEDS: Ibuprofen 600 MG Tablet PO (14:31)
[2021-10-04 14:45] VITALS: BP 120/55; PULSE 103; RESP 18; TEMP 36.4
[2021-10-04 14:47] VITALS: BP 120/55; PULSE 103
== END 2021-10-04 15:20 | disposition home or self-care (01) | DRG 807 ==
PROVIDERS: Admitting Provider Obstetrics & Gynecology; PCP Internal Medicine; Referring Provider Obstetrics & Gynecology; Visit Provider Obstetrics & Gynecology
DX: O41.03X0 Oligohydramnios, third trimester, not applicable or unspecified (principal); Z37.0 Single live birth; O48.0 Post-term pregnancy; Z3A.40 40 weeks gestation of pregnancy; Z86.16 Personal history of COVID-19
CPT/HCPCS: 59025; 59050; 85025; 86850; 86900; 86901; 99218; J7120; A4216; G0378

== ENCOUNTER → 2022-12-01 | Outpatient (CLI) | payer OTHER, SELFPAY ==
[2022-12-03 07:08] LABS: HSV 1 IgG 5.83 index (0.00-0.90); HSV 2 IgG < 0.91 index (0.00-0.90)
[2022-12-16 17:35] LABS: HPV Reflexed? NOT INDICATED
== END | disposition home or self-care (01) ==
PROVIDERS: PCP Internal Medicine; Referring Provider Obstetrics & Gynecology; Visit Provider Obstetrics & Gynecology
DX: Z12.4 Encounter for screening for malignant neoplasm of cervix (principal); N89.8 Other specified noninflammatory disorders of vagina
CPT/HCPCS: 36415; 86695; 86696; 87255; 88175; G0145

== ENCOUNTER 2024-05-07 15:05 | Emergency (ER) | payer OTHER, SELFPAY ==
[2024-05-07 15:06] VITALS: BP 136/87; PULSE 82; RESP 16; TEMP 36.4; O2SAT 100; BMI 24.5
--- NOTE | 2024-05-07 15:25 | ED.VIS.LOWEX ---
HPI History of Present Illness Chief Complaint: Bite Narrative Narrative: 33-year-old G3, P2 at approximately 7 weeks gestation presents with bug bites to her left lower extremity that have blistered up. She states that 2 days ago, on Wednesday evening, she thought she got bit by mosquitoes on her left anterior tibial area towards her ankle. She was then outside at a football game and noticed something poking out of her clothing. She noticed that the areas have blistered up and 2 larger tense blisters, that seem to have gotten worse over the last 2 days. She denies any fevers or chills, no nausea or vomiting, no vaginal bleeding or pain. She describes a burning and itching sensation. She took Benadryl last evening. They have not spread from the areas where she thought she had mosquito bites previously, and they are not rapidly spreading up her leg. She has not had this type of reaction to mosquito bites in the past. [facility] Medical History HSV-1 (herpes simplex virus 1) infection COVID-19 affecting , antepartum Kidney stone Home Medications ?Medication ?Instructions ?Recorded ?Last Taken ?Type amoxicillin 875 mg-potassium 1 tab PO BID #10 tabs 05/07/24 Unknown Rx clavulanate 125 mg tablet prednisone 20 mg tablet 40 mg (2 x 20 mg) PO DAILY 5 days 05/07/24 Unknown Rx #10 tabs vitamin #56-iron 35 mg 1 cap PO DAILY 05/07/24 Unknown History and 5 mg-folic acid 1 mg-dha capsule (OB Complete Petite) Allergy/AdvReac Type Severity Reaction Status Date / Time cefdinir (From Omnicef) Allergy Unknown Hives Verified 05/07/24 15:08 Family History Grandmother Breast cancer Grandmother Breast cancer Father CVA (cerebral vascular accident) Hypertension Surgical History History of extraction of renal calculus Social History adopted: No household members: spouse and children number of children: 2 current occupational status: employed 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 HEENT: No sore throat. No neck pain. No loss of vision. No rhinorrhea. Cardiovascular: No chest pain. No palpitations. No pedal edema. Respiratory: No cough, no shortness of breath. Abdominal: No abdominal pain. No nausea. No vomiting. Genitourinary: No dysuria. No hematuria. No vaginal bleeding, no vaginal pain. Musculoskeletal: No myalgias. No arthralgias. Neurologic: No headaches. No dizziness. No lightheadedness. Skin: No rash. No change in color. Positive blisters on left anterior tibial area distally towards ankle, worsening, 2 or 3. Psychiatric: No depression. No anxiety. EXAM Physical Exam Narrative Exam Narrative: Afebrile. Vital signs noted. Nontoxic-appearing. Regular rate and rhythm. Lungs clear to auscultation bilaterally. Abdomen soft nontender with normal active bowel sounds. Inspection of the left anterior tibial area shows 2-3 blisters, some of them tense with minimal surrounding erythema. She is neuro vas intact distally. Full range of motion of ankle and knee. Const Vital Signs: 05/07/24 15:06 Temperature 97.6 F L Temperature Source Oral Pulse Rate 82 Respiratory Rate 16 Blood Pressure 136/87 H Blood Pressure Mean 103 Pulse Ox 100 Oxygen Delivery Method Room Air MDM MDM MDM Narrative Medical decision making narrative: Differential diagnosis includes but not limited to localized reaction from bug bites versus cellulitis. I have low suspicion for TEN or another life-threatening dermatological condition. She states that they are not spreading to other areas and they were in the same spot where she had noticed previous mosquito bites/bug bites. As she is not having any vaginal bleeding or pain, and is only 7 weeks gestation, I do not feel that she requires any imaging or laboratory work. She was given her first dose of prednisone here which I think she would benefit from a steroid burst for 5 [address] I will also place her on antibiotics for any cellulitic component but I do feel that these are probably more localized allergic reaction type symptoms. She will follow-up with her primary care provider or her [facility]. I feel she can be discharged safely home with follow-up. Return instructions reviewed. Patient agreeable to the plan. Disposition is discharged home in stable condition. History & Record Review Discussion w/independent historian: Patient Discharge Plan Triage Chief Complaint: Bite Other Complaint: Itching ED Provider: Sherman Fitzpatrick Dx/Rx/DC Orders Clinical Impression: Bug bites, Allergic reaction Instructions: ED Mosquito Bite, ED Insect Bite Prescriptions: New amoxicillin-pot clavulanate 875-125 mg tablet 1 tab PO BID Qty: 10 0RF prednisone 20 mg tablet 40 mg PO DAILY 5 Days Qty: 10 0RF No Action OB Complete Petite 35 mg iron-5 mg iron-1 mg capsule 1 cap PO DAILY Primary Care Provider: Shivani Horner Referrals: Shivani Horner MD [Primary Care Provider] - 3-5 Days if not improving Print Language: Albanian Disposition Disposition: Home, Self Care
[2024-05-07] MEDS: predniSONE 20 MG Tablet 40 MG PO (15:37)
[2024-05-07] MEDS: Amox/Clavulanate 875 MG Tablet PO (15:37)
== END 2024-05-07 15:39 | disposition home or self-care (01) ==
LOC: ED 15:29
PROVIDERS: Emergency Provider Emergency Medicine; PCP Internal Medicine; Referring Provider Emergency Medicine; Visit Provider Emergency Medicine
DX: O9A.211 Injury, poisoning and certain other consequences of external causes complicating pregnancy, first trimester (principal); S80.862A Insect bite (nonvenomous), left lower leg, initial encounter; T78.40XA Allergy, unspecified, initial encounter; Z3A.01 Less than 8 weeks gestation of pregnancy
CPT/HCPCS: 99285

== ENCOUNTER → 2024-05-22 | Outpatient (CLI) | payer OTHER, SELFPAY | END | disposition home or self-care (01) | LOC: BIMLAB 09:29 | PROVIDERS: PCP Internal Medicine; Referring Provider Obstetrics & Gynecology; Visit Provider Obstetrics & Gynecology | DX: B00.9 Herpesviral infection, unspecified (principal) | CPT/HCPCS: 36415; 86703; 86762; 86780; 86803; 86850; 86900; 86901; 87086; 87088; 87340 ==

== ENCOUNTER → 2024-05-24 | Outpatient (CLI) | payer OTHER, SELFPAY | END | disposition home or self-care (01) | LOC: LABSPEC 09:55 | PROVIDERS: PCP Internal Medicine; Referring Provider Obstetrics & Gynecology; Visit Provider Obstetrics & Gynecology | DX: O98.519 Other viral diseases complicating pregnancy, unspecified trimester (principal); B00.9 Herpesviral infection, unspecified; Z3A.00 Weeks of gestation of pregnancy not specified | CPT/HCPCS: 87086; 87491; 87591 ==

== ENCOUNTER → 2024-05-29 | Outpatient (CLI) | payer OTHER, SELFPAY ==
--- OUTSIDE RECORDS SUMMARY | 2024-05-29 12:21 | XMS RPT_ITS | CCD ---
Author Organization [facility] Allergies Allergy Classification Reported Allergen(s) Allergy Type Date of Onset Reaction(s) Facility (1 source) cefdinir; Translations: [CEFDINIR] Drug Allergy 01-15-2019 [facility] Repository Encounters Encounter Date Encounter Type Care Provider Facility Start: 06-23-2022 End: 06-23-2022 ambulatory Facility:[facility] Payers Date Payer Category Payer Unknown [id number] Summary Purpose Family History No Family History Records Found Advance Directives No Advanced Directives Records Found Additional Source Comments INFORMATION SOURCE (unrecogn ized section and content) DATE CREATED AUTHOR 06/25/2022 [facility] FOR RECORDS PERTAINING TO PATIENTS WHO ARE OR HAVE BEEN ENROLLED IN A CHEMICAL DEPENDENCY/SUBSTANCEABUSE PROGRAM, SOME INFORMATION MAY BE OMITTED. This clinical summary was aggregated from multiple sources. Caution should be exercised in using it in the provision of clinical care. This summary normalizes information from multiple sources, and as a consequence, information in this document may materially change the coding, format and clinical context of patient data. In addition, data may be omitted in some cases. CLINICAL DECISIONS SHOULD BE BASED ON THE PRIMARY CLINICAL RECORDS. [employer] provides no warranty or guarantee of the accuracy or completeness of information in this document.
== END | disposition home or self-care (01) ==
LOC: PAVLAB 12:01
PROVIDERS: PCP Internal Medicine; Referring Provider Obstetrics & Gynecology; Visit Provider Obstetrics & Gynecology
DX: Z34.91 Encounter for supervision of normal pregnancy, unspecified, first trimester (principal); Z3A.00 Weeks of gestation of pregnancy not specified
CPT/HCPCS: 36415

== ENCOUNTER → 2024-08-18 | Outpatient (CLI) | payer OTHER, SELFPAY ==
--- NOTE | 2024-08-18 13:29 | US_ITS ---
STUDY: SECOND AND THIRD TRIMESTER OBSTETRICAL ULTRASOUND REASON FOR EXAM: Female, 34 years old anatomy LMP: March 18, 2024. TECHNIQUE: Transabdominal and Transvaginal TECHNICAL QUALITY: Adequate. PRIOR ULTRASOUND: None. FINDINGS: There is a single intrauterine fetus. The fetus is in a cephalic presentation. There is demonstrated cardiac activity with a heart rate of 145 bpm. There is a normal amniotic fluid volume. The largest amniotic fluid pocket measures 4.3 cm. The amniotic fluid index (CAT) is within normal limits. The placenta is anterior in location and is not low lying. There are Grade 1 placental changes. The cervix measures 3.9 cm in length. The adnexal regions are not visualized. BIOMETRY: BPD: 5.42 cm: 22 weeks, 3 days: 72% HC: 20.68 cm: 22 weeks, 5 days: 77% AC: 17.79 cm: 22 weeks, 5 days: 69% FL: 3.77 cm: 22 weeks, 0 days. 46% CI: 76% FL/BPD: 70% FL/HC: 18% FL/AC: 21% HC/AC: 1.16 age by current US: 22 weeks, 2 days. MATTHIAS by current US: December 20, 2024. Estimated weight: 504 grams, +/- 76 grams, 73 %. Age by LMP: 21 weeks, 6 days. MATTHIAS by LMP: December 23, 2024. ANATOMY: Gender: Male Cranium: Normal lateral ventricles. Normal choroid plexus. Normal cerebellum. Normal cisterna magna. Normal face, nose and lips. Chest: Normal 4-chamber heart. Abdomen/Pelvis: Normal diaphragm. Normal stomach. Normal abdominal wall. Normal cord insertion. Normal 3 vessel cord. Normal kidneys. Normal bladder. Spine: Limited visualization of the spine due to positioning of the fetus. Follow-up recommended. Extremities: Normal bilateral upper extremities. Normal bilateral lower extremities. US/OB Anatomy w/ Transvaginal IMPRESSION: Single live intrauterine gestation with a mean gestational age of 22 weeks and 2 days. Limited visualization of the spine. Follow-up recommended. Electronically Signed: Aki Rodriguez MD at 12:30 EST ,
== END | disposition home or self-care (01) ==
LOC: OPUS 13:27
PROVIDERS: PCP Internal Medicine; Referring Provider Nurse Practitioner Women's Health; Visit Provider Nurse Practitioner Women's Health
DX: Z34.91 Encounter for supervision of normal pregnancy, unspecified, first trimester (principal); Z3A.13 13 weeks gestation of pregnancy
CPT/HCPCS: 76805; 76817

== ENCOUNTER → 2024-08-25 | Outpatient (CLI) | payer OTHER, SELFPAY ==
--- NOTE | 2024-08-25 12:58 | US_ITS ---
STUDY: SECOND AND THIRD TRIMESTER OBSTETRICAL ULTRASOUND - LIMITED REASON FOR EXAM: Female, 34 years old follow up spine LMP: March 18, 2024. PRIOR ULTRASOUND: Comparison is made with prior study dated August 18, 2024. TECHNIQUE: Transabdominal TECHNICAL QUALITY: Adequate. FINDINGS: There is a single intrauterine fetus. The fetus is in a cephalic presentation. There is demonstrated cardiac activity with a heart rate of 153 bpm. There is a normal amniotic fluid volume. The largest amniotic fluid pocket measures 4.8 cm. The amniotic fluid index (CAT) is within normal limits. The placenta is anterior in location and is not low lying. There are Grade 1 placental changes. The cervix measures 3.8 cm in length. Imaging of the spine is within normal limits. US/OB Limited (No Biometrics) IMPRESSION: Normal appearance of the spine. Electronically Signed: Aki Rodriguez MD at 15:44 EST ,
== END | disposition home or self-care (01) ==
LOC: US 12:57
PROVIDERS: PCP Internal Medicine; Referring Provider Obstetrics & Gynecology; Visit Provider Obstetrics & Gynecology
DX: O09.92 Supervision of high risk pregnancy, unspecified, second trimester (principal); Z3A.00 Weeks of gestation of pregnancy not specified
CPT/HCPCS: 76815

== ENCOUNTER → 2024-09-26 | Outpatient (CLI) | payer OTHER, SELFPAY ==
[2024-09-26 08:56] LABS: Absolute Lymphocyte Count 1.69 X10^3/uL (0.83-4.51); Absolute Neutrophil Count 6.7 X10^3/uL (2.0-7.7); Basophil# 0.02 X10^3/uL; Basophil% 0.2 % (0-1); Eosinophil# 0.12 X10^3/uL; Eosinophils% 1.4 % (0-5); Hematocrit 33.8 % (37-47); Lymphocyte # 1.69 X10^3/ul (0.83-4.51); Lymphocyte % 19.1 % (19-41); Mean Corp Hgb Conc 32.5 g/dL (32-36); Mean Corpuscular Hgb 29.3 pg (27.0-32.0); Mean Corpuscular Volume 89.9 fL (81-99); Mean Platelet Vol. 10.1 fl (6.2-12.0); Monocyte# 0.29 X10^3/uL; Monocyte% 3.3 % (0-10); NRBC Flagged by Analyzer 0 % (0-5); Neutrophil # 6.68 X10^3/uL (2.7-7.7); Neutrophil % 75.5 % (47-70); Platelet Count 320 K/mm3 (150-450); RBC Distribution Width CV 13.1 % (11.6-14.6); RBC Distribution Width SD 42.4 fl (35.1-43.9); Red Blood Count 3.76 M/mm3 (4.2-5.4); White Blood Count 8.8 K/mm3 (4.4-11.0)
[2024-09-26 09:12] LABS: Glucose Challenge Gest 1H 50g 135 mg/dL (70-140)
[2024-09-26 15:16] LABS: HIV - WCH Non-Reactive (Nonreactive); Syphilis Antibodies Non-reactive
== END | disposition home or self-care (01) ==
PROVIDERS: PCP Internal Medicine; Referring Provider Registered Nurse; Visit Provider Registered Nurse
DX: O09.92 Supervision of high risk pregnancy, unspecified, second trimester (principal); Z13.1 Encounter for screening for diabetes mellitus; Z3A.00 Weeks of gestation of pregnancy not specified
CPT/HCPCS: 36415; 82950; 85025; 86703; 86780

== ENCOUNTER → 2024-09-29 | Outpatient (CLI) | payer OTHER, SELFPAY ==
[2024-09-29 07:54] LABS: Glucose GTT-Gestation. Fasting 89 mg/dL (<105)
[2024-09-29 08:53] LABS: Glucose GTT-Gestational 1 Hr 181 mg/dL (<190)
[2024-09-29 09:42] LABS: Glucose GTT-Gestational 2 Hr 129 mg/dL (<165)
[2024-09-29 10:52] LABS: Glucose GTT-Gestational 3 Hr 91 L (<145)
== END | disposition home or self-care (01) ==
PROVIDERS: PCP Internal Medicine; Referring Provider Nurse Practitioner Women's Health; Visit Provider Nurse Practitioner Women's Health
DX: O99.810 Abnormal glucose complicating pregnancy (principal); Z3A.00 Weeks of gestation of pregnancy not specified
CPT/HCPCS: 36415; 82951; 82952

== ENCOUNTER → 2024-11-30 | Outpatient (CLI) | payer OTHER, SELFPAY | END | disposition home or self-care (01) | LOC: LABSPEC 16:21 | PROVIDERS: PCP Internal Medicine; Referring Provider Advanced Practice Midwife; Visit Provider Advanced Practice Midwife | DX: O09.93 Supervision of high risk pregnancy, unspecified, third trimester (principal); Z3A.36 36 weeks gestation of pregnancy | CPT/HCPCS: 87081 ==

== ENCOUNTER → 2024-12-05 | Outpatient (CLI) | payer OTHER, SELFPAY ==
--- NOTE | 2024-12-05 13:23 | US_ITS ---
PROCEDURE: OB LIMITED WITH BIOMETRICS 12/05/2024 REASON FOR EXAM: GROWTH WITH CAT TECHNIQUE: High resolution obstetric ultrasound performed using a 2D transducer. Standard views obtained, including biometry, anatomy survey, and Doppler studies. FINDINGS Transabdominal imaging Single live intrauterine cardiac activity 155 beats per minute. Presentation is cephalic. CAT 18.0 cm, maximum vertical pocket 6.0 cm Anterior grade 3 placenta appears within limits, not low-lying DIMENSIONS: Biparietal Diameter: 9.6 cm/39 weeks 2 days, 97% Head Circumference: 34.6 cm/40 weeks 0 days, 84% Abdominal Circumference: 33.4 cm/37 weeks 2 days, 61% Femur Length: 7.3 cm/37 weeks 2 days, 48% OFD 12.0 cm, 98% FL/HC 22%, FL/BPD 76%, FL/HC 21%, CI 80%, HC/AC 1.04 ESTIMATED WEIGHT: 3308 g +/-496 g ESTIMATED WEIGHT PERCENTILE (24+ weeks): 68% age by current ultrasound 38 weeks 4 days, MATTHIAS 12/15/2024 age by prior ultrasound 37 weeks 6 days, MATTHIAS 12/20/2024 age by LMP 37 weeks 3 days, MATTHIAS 12/23/2024 US/OB Limited With Biometrics IMPRESSION: Single live intrauterine with biometry as above. OFD 12.0 cm, 98% Reading Location: [id number]
== END | disposition home or self-care (01) ==
LOC: US 13:22
PROVIDERS: PCP Internal Medicine; Referring Provider Advanced Practice Midwife; Visit Provider Advanced Practice Midwife
DX: O09.93 Supervision of high risk pregnancy, unspecified, third trimester (principal); Z3A.36 36 weeks gestation of pregnancy
CPT/HCPCS: 76816

== ENCOUNTER 2024-12-24 20:01 | Inpatient (IN) | payer OTHER, SELFPAY ==
[2024-12-24] VITALS (57 sets, daily range): BP systolic 103–140; BP diastolic 54–85; PULSE 90–108; RESP 17–19; TEMP 36.9–37.2; O2SAT 97–99; BMI 29.2
[2024-12-24] MEDS: Lactated Ringers 1,000 ML 999 ML IV (20:20)
[2024-12-24 20:44] LABS: Absolute Neutrophil Count 9.1 X10^3/uL (2.0-7.7); Basophil# 0.03 X10^3/uL; Basophil% 0.2 % (0-1); Eosinophils% 0.8 % (0-5); Hemoglobin 12.5 g/dL (12.0-15.0); Lymphocyte % 20.5 % (19-41); Mean Corp Hgb Conc 33.8 g/dL (32-36); Mean Corpuscular Hgb 29.6 pg (27.0-32.0); Mean Corpuscular Volume 87.7 fL (81-99); Mean Platelet Vol. 11.5 fl (6.2-12.0); Monocyte# 0.74 X10^3/uL; Monocyte% 5.8 % (0-10); NRBC Flagged by Analyzer 0 % (0-5); Neutrophil # 9.13 X10^3/uL (2.7-7.7); Neutrophil % 72.2 % (47-70); Platelet Count 273 K/mm3 (150-450); RBC Distribution Width CV 13.8 % (11.6-14.6); Red Blood Count 4.22 M/mm3 (4.2-5.4); White Blood Count 12.7 K/mm3 (4.4-11.0)
[2024-12-24 21:08] LABS: Syphilis Antibodies Nonreactive (Nonreactive)
[2024-12-24 21:12] LABS: Hepatitis B Surface Antigen Nonreactive (Nonreactive)
[2024-12-24] MEDS: Lactated Ringers 1,000 ML 200 ML IV (21:21)
[2024-12-24] MEDS: fentaNYL-bupivacaine (epidural) 100 ML BAG EPIDURAL (21:33)
[2024-12-25] VITALS (58 sets, daily range): BP systolic 93–132; BP diastolic 55–90; PULSE 67–152; RESP 16–20; TEMP 36.2–37.8; O2SAT 93–100
[2024-12-25] MEDS: fentaNYL-bupivacaine (epidural) 100 ML BAG EPIDURAL (02:05)
[2024-12-25] MEDS: Lactated Ringers 1,000 ML 200 ML IV (02:19)
[2024-12-25] MEDS: Mag Hydrox/Al Hydrox/Simeth 30 ML UDC PO (03:51)
[2024-12-25] MEDS: LACTATED RINGERS 500 ML 999 ML IV (04:55)
--- NOTE | 2024-12-25 05:46 | HP.PCM.OB_ITS ---
HPI - General General Date of Admission: 12/24/24 HPI Narrative FILEMON SANFORD, is a 34 F who presents IAL regular ctx no vb lof good fm Maternal Data Information MATTHIAS Calculator Estimated Delivery Date Method Current WG Current Estimate 12/23/24 LMP (Certain) 40w 2d Other Estimates 12/22/24 Ultrasound #1 40w 3d [facility] Medical History (Updated 12/25/24 @ 05:[address] Amy Mccabe MD) Oligohydramnios depression HSV-1 (herpes simplex virus 1) infection COVID-19 affecting , antepartum Kidney stone Home Medications ?Medication ?Instructions ?Recorded ?Last Taken ?Type vitamin #56-iron 35 mg 1 cap PO DAILY pregnan cy 05/07/24 12/24/24 History and 5 mg-folic acid 1 mg-dha capsule (OB Complete Petite) valacyclovir 500 mg tablet 500 mg PO BID HSV preventio n #60 10/31/24 12/24/24 Rx (Valtrex) tabs breast pump #1 ea 12/07/24 Unknown Rx Allergy/AdvReac Type Severity Reaction Status Date / Time cefdinir (From Omnicef) Allergy Unknown Hives Verified 12/24/24 20:11 Family History Grandmother Breast cancer Grandmother Breast cancer Father CVA (cerebral vascular accident) Hypertension Surgical History History of extraction of renal calculus Social History adopted: No household members: spouse and children number of children: 2 current occupational status: employed 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 current occupational exposures/hazards: No pets and animals: No history of recent travel: No sexually active: Yes Smoking Status: Former smoker quit date: 05/11/16 how long ago did patient quit smokin years ago- socialk smoking only in college alcohol intake: current alcohol intake frequency: holidays/special occasions only details: not while substance use type: does not use well-balanced diet: daily or most days caffeine: Yes Type: coffee Number of servings: 1 eating out: rarely or never during the past year weight has: remained stable what type of physical activity do you participate in: none philip/shinto: Yazidism seatbelt use: always do you feel safe at home: Yes 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 history: -Miky- [employer] 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 Date Name GA/Weeks Outcome Route Bth Weight Infant Gen Labor Lgth Anesthesia Del Locatn Provider FOB 10/17/19 Crystal 41 live - full term 6# 8oz Female 15 janine rs epidural [employer] SM Miky 10/03/21 Wayne 40 live - full term 7lbs 3oz Female e pidural [employer] Vande Velde Delivery Date: 10/03/21 Last Updated by: Mary Sheikh needs onsie Visit Details Expected Delivery Route/Plan Labor Preferences- CB/BF classes: na labor support person: Miky labor intervention preferences: [] pain management options preferred: epidural cut cord/dad catch: yes :plans PP control planned: discussed discussed possible routes of delivery and associated risks: [] special requests: [] Plans Covid status: [] Flu vaccine: obtained Tdap vaccine: given Rhogam: na LARC form signed: yes Problem list reviewed and updated with the most current plan of care details and appropriate orders placed. Relevant counseling for the gestational age provided. Continue routine care and follow up unless otherwise noted in visit notes/problem list details OB Flowsheet Initial Weight: 129 lb Date -?-?-?-?-?-?-?-?-?-?-?-?- EGA Weight BP Urine Prot -?-?-?-?-?-?-?-?-?-?-?-?- Glucose FHR FuHt Pres Dilation -?-?-?-?-?-?-?-?-?-?-?-?- Effaced St Visit Note 05/24/24 -?-?-?-?-?-?-?-?-?-?-?-?- 9w 4d 129 lb (+0 oz) 132/77 -?-?-?-?-?-?-?-?-?-?-?-?- 165 -?-?-?-?-?-?-?-?-?-?-?-?- SM- CRL 2.9cm co ns with LMP 06/21/24 -?-?-?-?-?-?-?-?-?-?-?-?- 13w 4d 132 lb 2 oz (+3 lb 2 oz) 111/77 Negative -?-?-?-?-?-?-?--?-?-?-?-?- Negative 160 -?-?-?-?-?-?-?-?-?-?-?-?- MH-No VB or naus ea. Brief US confirm FHT. Reviewed normal PN labs 07/20/24 -?-?-?-?-?-?-?-?-?-?-?-?- 17w 5d 134 lb 2 oz (+5 lb 2 oz) 108/70 Negative -?-?-?-?-?-?-?-?-?-?-?-?- Negative 152 -?-?-?-?-?-?-?-?-?-?-?-?- MH-No VB. Nausea improved. Good FM. 08/15/24 -?-?-?-?-?-?-?-?-?-?-?-?- 21w 3d 136 lb 6 oz (+7 lb 6 oz) 107/77 Negative -?-?-?-?-?-?--?-?-?-?-?-?- Negative 145 -?-?-?-?-?-?-?-?-?-?-?-?- JV- no cramping or spotting , no complaints, has anatomy scan scheduled for 08/18/24 for anatomy scan. 09/15/24 -?-?-?-?-?-?-?-?-?-?-?-?- 25w 6d 144 lb 4 oz (+15 lb 4 oz) 111/74 Negative -?-?-?-?-?-?-?-?-?-?-?-?- Negative 150 26 -?-?-?-?-?-?-?-?-?-?-?-?- LC- no vb/crampi ng. no concerns today.good fm. 10/05/24 -?-?-?-?-?-?-?-?-?-?-?-?- 28w 5d 147 lb 4 oz (+18 lb 4 oz) 120/72 Negative -?-?-?-?-?-?-?-?-?-?-?-?- Negative 151 28 -?-?-?-?-?-?-?-?-?-?-?-?- MH-No VB, LOF. G ood FM. Larc and tdap done. 10/17/24 -?-?-?-?-?-?-?-?-?-?-?-?- 30w 3d 149 lb 8 oz (+20 lb 8 oz) 116/67 Negative -?-?-?-?-?-?-?-?-?-?-?-?- Negative 150 31 -?-?-?-?-?-?-?-?-?-?-?-?- SM- no vb lof go od fm no regualr ctx 10/31/24 -?-?-?-?-?-?-?-?-?-?-?-?- 32w 3d 152 lb 4 oz (+23 lb 4 oz) 120/71 Negative -?-?-?-?-?-?-?-?-?-?-?-?- Negative 140 32 -?-?-?-?-?-?-?-?-?-?-?-?- KW- no vb/lof/ct x. good fm. Valtrex sent. going to [place] vacation 11/16/24 -?-?-?-?-?-?-?-?-?-?-?-?- 34w 5d 152 lb 6 oz (+23 lb 6 oz) 121/73 Negative -?-?-?-?-?-?-?-?-?-?-?-?- Negative 145 35 Cephalic -?-?-?-?-?-?-?-?-?-?-?-?- JV- h/o [place] la [facility] . check CAT at 36 weeks and 39/40 weeks. JV- h/o [place] last . check CAT at 36 weeks and 39/40 weeks. naming the baby Manny Harrington and calling him Len 11/30/24 -?-?-?-?-?-?-?-?-?-?-?-?- 36w 5d 154 lb 6 oz (+25 lb 6 oz) 124/78 Negative -?-?-?-?-?-?-?-?-?-?-?-?- Negative 140 36 Cephalic 0 -?-?-?-?-?-?-?-?-?-?-?-?- KW- no vb/lof/ct x. good fm. GBS today. physician not here for CAT. formal US ordered. was asking for 39 week IOL for husbands travel schedule. 12/07/24 -?-?-?-?-?-?-?-?-?-?-?-?- 37w 5d 153 lb 8 oz (+24 lb 8 oz) 115/71 Trace -?-?-?-?-?-?-?-?-?-?-?-?- Negative 140 37 Cephalic -?-?-?-?-?-?-?-?-?-?-?-?- SM no vb lof goo d fm n oreglar ctx 12/14/24 -?-?-?-?-?-?-?-?-?-?-?-?- 38w 5d 154 lb 6 oz (+25 lb 6 oz) 130/79 Negative -?-?-?-?-?-?-?-?-?-?-?-?- Negative 129 38 Cephalic 1 -?-?-?-?-?-?-?-?-?-?-?-?- 60 -2 JV- pt req uesting IOL at 39 weeks. [place] her due date. is 8 today. 12/21/24 -?-?-?-?-?-?-?-?-?-?-?-?- 39w 5d 155 lb 8 oz (+26 lb 8 oz) 119/78 Negative -?-?-?-?-?-?-?-?-?-?-?-?- Negative 145 39 Cephalic 2 -?-?-?-?-?-?-?-?-?-?-?-?- 60 -2 KW- no vb/ lof/ctx. good fm. IOL was put on hold due to census. would like to try for wednesday. NST FHR Rate Baby A Baseline: 140 Variability:: Moderate Accelerations:: 15 x 15 Decelerations:: None NST Reactive:: Yes FHR Category:: Category I Uterine Activity:: q3-5 ROS Constitutional Constitutional: Reports systems reviewed and no addt'l complaints, except as documented ENT HEENT: Reports systems reviewed and no addt'l complaints, except as documented Cardiovascular Cardiovascular: Reports systems reviewed and no addt'l complaints, except as documented Respiratory/Chest Respiratory/Chest: Reports systems reviewed and no addt'l complaints, except as documented Gastrointestinal Gastrointestinal: Reports systems reviewed and no addt'l complaints, except as documented and nausea; Denies abdominal pain Genitourinary Genitourinary: Reports systems reviewed and no addt'l complaints, except as documented, contractions Details: present and frequency (regular ) and movement Details: present Musculoskeletal Musculoskeletal: Reports systems reviewed and no addt'l complaints, except as documented Integumentary Integumentary: Reports as per HPI Neurologic Neurologic: Reports systems reviewed and no addt'l complaints, except as documented Endocrine Endocrinology: Reports systems reviewed and no addt'l complaints, except as documented Vital Signs Vital Signs Vital Signs: 12/24/24 19:47 12/24/24 19:47 12/24/24 19:47 Temperature Temperature Source Pulse Rate 99 Respiratory Rate Blood Pressure 140/82 H BP Systolic 140 BP Diastolic 82 Pulse Ox 97 12/24/24 19:47 12/24/24 19:47 12/24/24 19:47 Temperature 98.6 F Temperature Source Temporal Pulse Rate Respiratory Rate 17 Blood Pressure BP Systolic BP Diastolic Pulse Ox 12/24/24 21:15 12/24/24 21:16 12/24/24 21:16 Temperature Temperature Source Pulse Rate 100 Respiratory Rate 19 H Blood Pressure BP Systolic BP Diastolic Pulse Ox 98 12/24/24 21:18 12/24/24 21:18 12/24/24 21:20 Temperature Temperature Source Pulse Rate 100 Respiratory Rate 19 H Blood Pressure 136/72 H BP Systolic 136 BP Diastolic 72 Pulse Ox 12/24/24 21:21 12/24/24 21:21 12/24/24 21:23 Temperature Temperature Source Pulse Rate 94 Respiratory Rate Blood Pressure 127/80 H BP Systolic 127 BP Diastolic 80 Pulse Ox 98 12/24/24 21:23 12/24/24 21:25 12/24/24 21:26 Temperature Temperature Source Pulse Rate 105 H 108 H Respiratory Rate 18 Blood Pressure BP Systolic BP Diastolic Pulse Ox 12/24/24 21:26 12/24/24 21:28 12/24/24 21:28 Temperature Temperature Source Pulse Rate 97 Respiratory Rate Blood Pressure 126/72 H BP Systolic 126 BP Diastolic 72 Pulse Ox 98 12/24/24 21:29 12/24/24 21:29 12/24/24 21:30 Temperature Temperature Source Pulse Rate 105 H Respiratory Rate 18 Blood Pressure 131/78 H BP Systolic 131 BP Diastolic 78 Pulse Ox 12/24/24 21:32 12/24/24 21:32 12/24/24 21:33 Temperature Temperature Source Pulse Rate 91 Respiratory Rate Blood Pressure 125/73 H BP Systolic 125 BP Diastolic 73 Pulse Ox 98 12/24/24 21:33 12/24/24 21:35 12/24/24 21:37 Temperature Temperature Source Pulse Rate 91 101 H Respiratory Rate 18 Blood Pressure BP Systolic BP Diastolic Pulse Ox 12/24/24 21:37 12/24/24 21:39 12/24/24 21:39 Temperature Temperature Source Pulse Rate 103 H Respiratory Rate Blood Pressure 132/85 H BP Systolic 132 BP Diastolic 85 Pulse Ox 98 12/24/24 21:40 12/24/24 21:42 12/24/24 21:42 Temperature Temperature Source Pulse Rate 97 Respiratory Rate 18 Blood Pressure BP Systolic BP Diastolic Pulse Ox 97 12/24/24 21:43 12/24/24 21:43 12/24/24 21:45 Temperature Temperature Source Pulse Rate 104 H Respiratory Rate 18 Blood Pressure 130/75 H BP Systolic 130 BP Diastolic 75 Pulse Ox 12/24/24 21:47 12/24/24 21:47 12/24/24 21:48 Temperature Temperature Source Pulse Rate 97 Respiratory Rate Blood Pressure 128/72 H BP Systolic 128 BP Diastolic 72 Pulse Ox 97 12/24/24 21:48 12/24/24 21:50 12/24/24 21:52 Temperature Temperature Source Pulse Rate 96 92 Respiratory Rate 18 Blood Pressure BP Systolic BP Diastolic Pulse Ox 12/24/24 21:52 12/24/24 21:53 12/24/24 21:53 Temperature Temperature Source Pulse Rate 95 Respiratory Rate Blood Pressure 121/67 H BP Systolic 121 BP Diastolic 67 Pulse Ox 97 12/24/24 21:55 12/24/24 21:57 12/24/24 21:57 Temperature Temperature Source Temporal Pulse Rate 101 H Respiratory Rate 18 Blood Pressure BP Systolic BP Diastolic Pulse Ox 12/24/24 21:57 12/24/24 21:57 12/24/24 21:58 Temperature 98.5 F Temperature Source Pulse Rate Respiratory Rate Blood Pressure 135/72 H BP Systolic 135 BP Diastolic 72 Pulse Ox 97 12/24/24 21:58 12/24/24 22:00 12/24/24 22:02 Temperature Temperature Source Pulse Rate 93 103 H Respiratory Rate 17 Blood Pressure BP Systolic BP Diastolic Pulse Ox 12/24/24 22:02 12/24/24 22:03 12/24/24 22:03 Temperature Temperature Source Pulse Rate 103 H Respiratory Rate Blood Pressure 133/77 H BP Systolic 133 BP Diastolic 77 Pulse Ox 97 12/24/24 22:05 12/24/24 22:07 12/24/24 22:07 Temperature Temperature Source Pulse Rate 99 Respiratory Rate 17 Blood Pressure BP Systolic BP Diastolic Pulse Ox 98 12/24/24 22:09 12/24/24 22:09 12/24/24 22:10 Temperature Temperature Source Pulse Rate 100 Respiratory Rate 17 Blood Pressure 111/55 L BP Systolic 111 BP Diastolic 55 Pulse Ox 12/24/24 22:12 12/24/24 22:12 12/24/24 22:13 Temperature Temperature Source Pulse Rate 97 Respiratory Rate Blood Pressure 108/57 L BP Systolic 108 BP Diastolic 57 Pulse Ox 97 12/24/24 22:13 12/24/24 22:17 12/24/24 22:17 Temperature Temperature Source Pulse Rate 95 103 H Respiratory Rate Blood Pressure BP Systolic BP Diastolic Pulse Ox 98 12/24/24 22:19 12/24/24 22:19 12/24/24 22:22 Temperature Temperature Source Pulse Rate 98 103 H Respiratory Rate Blood Pressure 108/55 L BP Systolic 108 BP Diastolic 55 Pulse Ox 12/24/24 22:22 12/24/24 22:23 12/24/24 22:23 Temperature Temperature Source Pulse Rate 96 Respiratory Rate Blood Pressure 124/58 H BP Systolic 124 BP Diastolic 58 Pulse Ox 97 12/24/24 22:27 12/24/24 22:27 12/24/24 22:28 Temperature Temperature Source Pulse Rate 91 Respiratory Rate Blood Pressure 113/54 L BP Systolic 113 BP Diastolic 54 Pulse Ox 98 12/24/24 22:28 12/24/24 22:32 12/24/24 22:32 Temperature Temperature Source Pulse Rate 98 90 Respiratory Rate Blood Pressure BP Systolic BP Diastolic Pulse Ox 97 12/24/24 22:34 12/24/24 22:34 12/24/24 22:37 Temperature Temperature Source Pulse Rate 90 90 Respiratory Rate Blood Pressure 103/58 L BP Systolic 103 BP Diastolic 58 Pulse Ox 12/24/24 22:37 12/24/24 22:38 12/24/24 22:38 Temperature Temperature Source Pulse Rate 100 Respiratory Rate Blood Pressure 111/60 BP Systolic 111 BP Diastolic 60 Pulse Ox 99 12/24/24 22:42 12/24/24 22:42 12/24/24 22:43 Temperature Temperature Source Pulse Rate 101 H Respiratory Rate Blood Pressure 108/60 BP Systolic 108 BP Diastolic 60 Pulse Ox 98 12/24/24 22:43 12/24/24 22:47 12/24/24 22:47 Temperature Temperature Source Pulse Rate 101 H 101 H Respiratory Rate Blood Pressure BP Systolic BP Diastolic Pulse Ox 99 12/24/24 22:48 12/24/24 22:48 12/24/24 22:53 Temperature Temperature Source Pulse Rate 96 92 Respiratory Rate Blood Pressure 118/59 L BP Systolic 118 BP Diastolic 59 Pulse Ox 12/24/24 22:53 12/24/24 22:58 12/24/24 22:58 Temperature Temperature Source Pulse Rate 93 Respiratory Rate Blood Pressure BP Systolic BP Diastolic Pulse Ox 97 98 12/24/24 23:02 12/24/24 23:02 12/24/24 23:02 Temperature Temperature Source Temporal Pulse Rate 91 Respiratory Rate Blood Pressure 126/71 H BP Systolic 126 BP Diastolic 71 Pulse Ox 12/24/24 23:02 12/24/24 23:03 12/24/24 23:03 Temperature 98.4 F Temperature Source Pulse Rate 92 Respiratory Rate Blood Pressure BP Systolic BP Diastolic Pulse Ox 97 12/24/24 23:48 12/24/24 23:48 12/24/24 23:48 Temperature Temperature Source Temporal Pulse Rate 94 Respiratory Rate Blood Pressure 110/65 BP Systolic 110 BP Diastolic 65 Pulse Ox 12/24/24 23:48 12/24/24 23:48 12/25/24 00:56 Temperature 99.0 F Temperature Source Pulse Rate Respiratory Rate 17 Blood Pressure 125/63 H BP Systolic 125 BP Diastolic 63 Pulse Ox 12/25/24 00:56 12/25/24 00:56 12/25/24 00:57 Temperature Temperature Source Temporal Pulse Rate 104 H Respiratory Rate Blood Pressure BP Systolic BP Diastolic Pulse Ox 98 12/25/24 00:57 12/25/24 00:57 12/25/24 01:49 Temperature 97.8 F Temperature Source Temporal Pulse Rate Respiratory Rate 16 Blood Pressure BP Systolic BP Diastolic Pulse Ox 12/25/24 01:49 12/25/24 01:49 12/25/24 01:49 Temperature Temperature Source Pulse Rate 85 Respiratory Rate 16 Blood Pressure 118/64 BP Systolic 118 BP Diastolic 64 Pulse Ox 12/25/24 01:49 12/25/24 01:49 12/25/24 02:59 Temperature 98.3 F Temperature Source Pulse Rate Respiratory Rate Blood Pressure 112/55 L BP Systolic 112 BP Diastolic 55 Pulse Ox 97 12/25/24 02:59 12/25/24 02:59 12/25/24 02:59 Temperature Temperature Source Temporal Pulse Rate 89 Respiratory Rate 17 Blood Pressure BP Systolic BP Diastolic Pulse Ox 12/25/24 02:59 12/25/24 02:59 12/25/24 03:46 Temperature 98.2 F Temperature Source Pulse Rate Respiratory Rate Blood Pressure 111/86 H BP Systolic 111 BP Diastolic 86 Pulse Ox 97 12/25/24 03:46 12/25/24 03:47 12/25/24 03:47 Temperature Temperature Source Temporal Pulse Rate 105 H Respiratory Rate 16 Blood Pressure BP Systolic BP Diastolic Pulse Ox 12/25/24 03:47 12/25/24 03:47 12/25/24 04:38 Temperature 99.6 F H Temperature Source Pulse Rate Respiratory Rate Blood Pressure 113/66 BP Systolic 113 BP Diastolic 66 Pulse Ox 100 12/25/24 04:38 12/25/24 04:38 12/25/24 04:38 Temperature Temperature Source Temporal Pulse Rate 107 H 112 H Respiratory Rate Blood Pressure BP Systolic BP Diastolic Pulse Ox 12/25/24 04:38 12/25/24 04:38 12/25/24 04:38 Temperature 99.2 F H Temperature Source Pulse Rate Respiratory Rate 16 Blood Pressure BP Systolic BP Diastolic Pulse Ox 97 12/25/24 05:08 12/25/24 05:08 12/25/24 05:17 Temperature Temperature Source Temporal Pulse Rate 98 Respiratory Rate Blood Pressure BP Systolic BP Diastolic Pulse Ox 98 12/25/24 05:17 12/25/24 05:17 12/25/24 05:17 Temperature Temperature Source Pulse Rate 118 H Respiratory Rate 16 Blood Pressure 122/74 H BP Systolic 122 BP Diastolic 74 Pulse Ox 12/25/24 05:17 12/25/24 05:17 Temperature 100.1 F H Temperature Source Pulse Rate Respiratory Rate Blood Pressure BP Systolic BP Diastolic Pulse Ox 96 Weight Weight: 155 lb Body Mass Index (BMI) 29.2 Physical Exam Const alert, oriented x3 and healthy appearing Constitutional Narrative: uncomfortable with contractions HEENT normocephalic and moist oral mucous membranes Head and Scalp: atraumatic Neck full ROM, no lymphadenopathy, supple and thyroid normal General: trachea midline Thyroid: thyroid normal Lymph Lymphatic: no lymphadenopathy noted Chest inspection of chest normal Resp normal respiratory effort Cardio regular rate GI soft to palpation and non-tender GI Narrative: gravid Inspection: gravid external exam normal Bimanual Exam - Vag & Uterus: uterus non-tender Manual OB Exam: estimated gestational size appropriate, presentation cephalic, dilated, effaced and station Extremity normal to inspection General Extremity: Negative for edema Skin no rashes or lesions noted Neuro deep tendon reflexes 2+ bilaterally Motor Exam: strength 5/5 throughout and clonus absent Psych mental status grossly normal Labs Labs Labs: Blood Type A POSITIVE Antibody Screen NEGATIVE Hct 37.0 % (37-47) Hgb 12.5 g/dL (12.0-15.0) Obstetrics Ultrasound Syphilis Total Ab Nonreactive (Nonreactive) Rubella IgG Antibody Reactive (Nonreactive) Hep Bs Antigen Nonreactive (Nonreactive) Hepatitis C Antibody Non-Reactive (Nonreactive) Hepatitis C Ab (EIA) Chlamydia DNA (SMITHA) N.gonorrhoeae DNA (SMITHA) Not Reportable HIV 1&2 Antibody Non-Reactive (Nonreactive) Glucose 1 Hr 50 gm 135 mg/dL (70-140) Gest Glucose Tolerance MG/DL Rhogam given: No Miscellaneous Test Assessment & Plan (1) Abnormal glucose affecting : COMMENT: nl 3 hr GTT (2) Genital herpes simplex virus (HSV) infection in mother affecting : COMMENT: plan valtrex at 32-34 weeks (3) Supervision of high-risk : QUALIFIERS: Trimester: third trimester Qualified Code(s): O09.93 - Supervision of high risk , unspecified, third trimester COMMENT: [id number], MATTHIAS 12/23/24, Wayne Pandey, Miky (4) : QUALIFIERS: Weeks of gestation: 39 weeks Qualified Code(s): Z3A.39 - 39 weeks gestation of COMMENT: GBS neg,NIPT low risk, declined ntd and carrier screen, nl anatomy. (5) Active labor at term: PLAN: Plan admit IAL epidural
--- NOTE | 2024-12-25 05:48 | OB.VAGDELI_ITS ---
Assessment & Plan (1) Active labor at term: (2) Abnormal glucose affecting : COMMENT: nl 3 hr GTT (3) Genital herpes simplex virus (HSV) infection in mother affecting : COMMENT: plan valtrex at 32-34 weeks (4) Supervision of high-risk : QUALIFIERS: Trimester: third trimester Qualified Code(s): O09.93 - Supervision of high risk , unspecified, third trimester COMMENT: [id number], MATTHIAS 12/23/24, PC Wayne Rojas, Miky (5) : QUALIFIERS: Weeks of gestation: 39 weeks Qualified Code(s): Z3A.39 - 39 weeks gestation of COMMENT: GBS neg,NIPT low risk, declined ntd and carrier screen, nl anatomy. (6) Vaginal delivery: COMMENT: sm ial cynthia schaefer 40 Maternal Data Information MATTHIAS Calculator Estimated Delivery Date Method Current WG Current Estimate 12/23/24 LMP (Certain) 40w 2d Other Estimates 12/22/24 Ultrasound #1 40w 3d Vaginal Delivery Maternal Presentation Maternal Presentation: see assessment and plan Vaginal Delivery Information Procedure Performed: Spontaneous Vaginal Delivery Surgeon/Practitioner: Amy Mccabe Pre-Procedure Diagnosis: see assessment and plan Post-Procedure Diagnosis: same Type of anesthesia: Epidural Estimated Blood Loss: 300 Findings Description of procedure: Patient began pushing and developed minimal variability tachycardia recurrent lates with a cat III tracing recommended vacuum to shortend second stage patient agreed. vacuum applied to the green zone, +3 station and with 3 pulls with 3 contractions 2 pop offs with good descent, right mediolateral episiotomy was needed to aid in delivery, and she delivered the head in the COSME presentation. The head was delivered atraumatically. The anterior and posterior shoulders delivered without complication followed by the rest of the infant and the was placed on the maternal abdomen. Delayed cord clamping was employed for approximately 60 seconds. Cord was clamped and cut and gentle traction was applied to the cord and the placenta delivered spontaneously immediately following it was noted to be intact with three-vessel cord. The perineum and vagina were inspected and was noted to have a third -degree laceration that was repaired in the usual fashion with 3-0 vicryl rapide and 2-0 vicryl figure of eight sutures . EBL was 300. Patient and tolerated delivery well. Presentation: Vertex Placental Delivery Description: Spontaneous Specimen collected: Yes Description of specimen(s) removed: placenta Activities Leader manpower development specialist: No Post Vaginal Deli Medications given after delivery: Other (pitocin) Complication Complications: No Multi Select Codes Urinary/Genital Urinary/Genital CPT Codes: 87340 Vaginal Delivery [facility]
--- NOTE | 2024-12-25 05:49 | DCINST_ITS ---
Discharge Instructions Diet Discharge Diet: No restrictions DC O2, CPAP, BIPAP needs Home O2 Discharge instructions: No Dressing / Incision Discharge Activity: Return to Normal Activity, May Not Drive (while taking narcotic pain medications.) and May Shower May resume sexual activity in: 4-6 weeks Dressing / Incision Call your doctor if your incision/area has: Continuous Slow Oozing, Sudden Increased Bleeding, Increased Pain/ Swelling, Increased Redness and Foul Smelling Discharge Follow Up Care Please Follow Up With: Amy Mccabe MD When: Call [phone] to make an appointment with your doctor in 6 weeks. If you had elevated blood pressure or 4th degree laceration, you will need to be seen in 2 weeks. Test Results: Test results from this visit will be discussed in further detail at your follow- up appointment, if applicable. Discharge Plan Admission Admit Date/Time: 12/24/24 20:01 Attending Provider: Amy Mccabe Primary Care Provider: Shivani Horner Discharge Orders/Prescriptions Prescriptions: New oxycodone-acetaminophen [Percocet] 5-325 mg tablet 1 tab PO Q4H PRN (Reason: pain) 7 Days Qty: 20 0RF naproxen 500 mg tablet 500 mg PO BID PRN PRN (Reason: Pain) Qty: 30 1RF docusate sodium [Colace] 100 mg capsule 100 mg PO BID Qty: 60 1RF No Action valacyclovir [Valtrex] 500 mg tablet 500 mg PO BID Qty: 60 2RF Rx Instructions: take twice daily until (DME) breast pump Device See Rx Instructions .ROUTE .MEDSUPPLY Qty: 1 0RF Rx Instructions: As directed OB Complete Petite 35 mg iron-5 mg iron-1 mg capsule 1 cap PO DAILY Referrals / Follow Up: Shivani Horner MD [Primary Care Provider] - Disposition Disposition (needs filled in before D/C Order can be placed): Home, Self Care
[2024-12-25] MEDS: Oxytocin 15 Units/NS 250ml 15 UNITS/250 ML IV.SOLN 334 UNITS IV (06:44)
[2024-12-25] MEDS: Oxytocin 15 Units/NS 250ml 15 UNITS/250 ML IV.SOLN 83 UNITS IV (07:20)
[2024-12-25] MEDS: Lactated Ringers 1,000 ML 999 ML IV (07:35)
[2024-12-25] MEDS: Ketorolac 30 MG/ML Syringe IV (07:46)
[2024-12-25] MEDS: Benzocaine/Lanolin/Aloe Vera 85 GM Spray 1 SPRAY TOPICAL (10:25)
[2024-12-25] MEDS: Ketorolac 10 MG Tablet PO (14:16)
[2024-12-25] MEDS: Senna/Docusate Sodium 1 Tablet PO (14:16)
[2024-12-25] MEDS: 0.9% Saline Lock 10 ML Syringe IV (19:59)
[2024-12-25] MEDS: Acetaminophen 500 MG Tablet 1000 MG PO (19:59)
[2024-12-26 00:30] VITALS: BP 121/78; PULSE 90; RESP 16; TEMP 36.6; O2SAT 98
[2024-12-26 05:00] VITALS: BP 108/72; PULSE 95; RESP 16; TEMP 36.7; O2SAT 97
[2024-12-26] MEDS: Ketorolac 10 MG Tablet PO (05:31)
--- NOTE | 2024-12-26 07:27 | PN.OBGYN_ITS ---
Subjective Subjective Patient doing well without complaints. Tolerating PO. Ambulating without difficulty. Palmer cath still in place. will D/C this am and if able to void x 2 will consider D/C today. Feeding well. Denies chest pain, shortness of breath, calf pain/swelling, fevers, chills, lightheadedness. Objective Data Objective Data Vital Signs: Vital Signs Temp Pulse Resp BP Pulse Ox O2 Del Method 98.0 F 95 16 108/72 97 Room Air 12/26/24 05:00 12/26/24 05:00 12/26/24 05:00 12/26/24 05:00 12/26/24 05:00 12/26/24 05:00 Oxygen Delivery Method Room Air Weight: 155 lb Body Mass Index (BMI) 29.2 Intake & Output: Intake and Output for Last 24 Hours 12/24/24 12/25/24 12/26/24 23:59 23:59 23:59 Intake Total 999 / 999 3681.57 / 3681.57 Output Total 600 / 600 2800 / 2800 Balance 399 / 399 881.57 / 881.57 Lab / Micro Data Attestation: I reviewed the patient's lab results. 12/24/24 20:20 ROS Constitutional Constitutional: Reports systems reviewed and no addt'l complaints, except as documented; Denies anorexia or headache(s) Cardiovascular Cardiovascular: Reports systems reviewed and no addt'l complaints, except as documented; Denies dizziness, dyspnea, nausea or tachypnea Respiratory/Chest Respiratory/Chest: Reports systems reviewed and no addt'l complaints, except as documented; Denies cough, dyspnea, shortness of breath at rest or tachypnea Gastrointestinal Gastrointestinal: Reports systems reviewed and no addt'l complaints, except as documented; Denies abdominal pain, constipation or nausea Genitourinary Genitourinary: Reports systems reviewed and no addt'l complaints, except as documented; Denies burning urination, difficulty urinating, dysuria, urinary frequency or urinary incontinence Musculoskeletal Musculoskeletal: Reports systems reviewed and no addt'l complaints, except as documented Integumentary Integumentary: Reports systems reviewed and no addt'l complaints, except as documented Neurologic Neurologic: Reports systems reviewed and no addt'l complaints, except as documented; Denies abnormal speech, dizziness or headache(s) Psychiatric Psychiatric: Reports systems reviewed and no addt'l complaints, except as documented Endocrine Endocrinology: Reports systems reviewed and no addt'l complaints, except as documented Hematologic/Lymphatic Hematologic/Lymphatic: Reports systems reviewed and no addt'l complaints, except as documented Physical Exam Const alert, oriented x3 and no apparent distress Neck full ROM Resp normal respiratory effort, normal air movement and no retractions Effort and Inspection: able to speak in complete sentences and symmetric chest movement GI soft to palpation Narrative: palmer cath in place due to swelling after delivery and hx of difficulty voiding after delivery. will d/c this am. Bladder / Kidney Exam: bladder normal to palpation Uterus Palpation: uterus fundus firm Extremity normal to inspection and full ROM Psych mental status grossly normal, thought process normal and cooperative Assessment & Plan (1) Third degree laceration of perineum, type 3c: (2) Vaginal delivery: COMMENT: sm iaduong cynthia schaefer 40 PLAN: s/p PPD # 1 1. routine post delivery care 2. breast feeding- support given 3. rh positive 4. rubella immune 5 Discharge home if able to void x2 (3) Active labor at term: (4) Abnormal glucose affecting : COMMENT: nl 3 hr GTT (5) Genital herpes simplex virus (HSV) infection in mother affecting : COMMENT: plan valtrex at 32-34 weeks (6) Supervision of high-risk : QUALIFIERS: Trimester: third trimester Qualified Code(s): O09.93 - Supervision of high risk , unspecified, third trimester COMMENT: [id number], MATTHIAS 12/23/24, PC Wayne Rojas, Miky (7) : QUALIFIERS: Weeks of gestation: 39 weeks Qualified Code(s): Z 3A.39 - 39 weeks gestation of COMMENT: GBS neg,NIPT low risk, declined ntd and carrier screen, nl anatomy. Charges/Coding Multi Select Codes Urinary/Genital Urinary/Genital CPT Codes: No Charge
[2024-12-26] MEDS: Senna/Docusate Sodium 1 Tablet PO (07:55)
[2024-12-26 09:30] VITALS: BP 104/71; PULSE 89; RESP 16; TEMP 36.7; O2SAT 100
== END 2024-12-26 14:00 | disposition home or self-care (01) | DRG 768 ==
LOC: WPOUT 20:03 → WP 20:03
PROVIDERS: Admitting Provider Obstetrics & Gynecology; PCP Internal Medicine; Referring Provider Obstetrics & Gynecology; Visit Provider Obstetrics & Gynecology
DX: O98.32 Other infections with a predominantly sexual mode of transmission complicating childbirth (principal); Z37.0 Single live birth; O70.23 Third degree perineal laceration during delivery, IIIc; A60.09 Herpesviral infection of other urogenital tract; Z3A.39 39 weeks gestation of pregnancy; Z87.891 Personal history of nicotine dependence; Z79.899 Other long term (current) drug therapy
CPT/HCPCS: 59025; 59050; 76815; 85025; 86780; 86850; 86900; 86901; 87340; 99221; A4216; G0378

== ENCOUNTER 2025-06-02 13:16 | Emergency (ER) | payer OTHER, SELFPAY ==
[2025-06-02 13:16] VITALS: BP 113/80; PULSE 97; RESP 18; TEMP 36.6; O2SAT 99; BMI 24.7
[2025-06-02] MEDS: 0.9% Normal Saline (1000mL) 1,000 ML 250 ML IV (13:54)
[2025-06-02] MEDS: Ketorolac 30 MG/ML Syringe IV (13:55)
[2025-06-02 14:04] LABS: Mucous, Urine 0 SEEN /hpf (<or=2+)
[2025-06-02 14:14] LABS: Color, Urine Yellow (Yellow); Glucose, Dipstick Normal (Normal); Hematocrit 43.8 % (37-47); Hemoglobin 14.2 g/dL (12.0-15.0); Immature Granulocytes Count 0.050 X10^3/uL (0.0-0.0); Ketone-Dipstick 50 mg/dl (Negative); Leukocyte Esterase-Dipstick 100 /ul (Negative); Mean Corp Hgb Conc 32.4 g/dL (32-36); Mean Corpuscular Volume 87.4 fL (81-99); Mean Platelet Vol. 10.1 fl (6.2-12.0); NRBC Flagged by Analyzer 0 % (0-5); Nitrite-Dipstick Negative (Negative); Occult Blood-Urine 250 /ul (Negative); Platelet Count 452 K/mm3 (150-450); Protein-Dipstick 500 mg/dl (Negative); RBC Distribution Width CV 13.2 % (11.6-14.6); RBC Distribution Width SD 41.9 fl (35.1-43.9); Red Blood Count 5.01 M/mm3 (4.2-5.4); Specific Gravity, Urine 1.025 (1.002-1.030); Urine Bilirubin Dipstick Negative (Negative); White Blood Count 12.4 K/mm3 (4.4-11.0)
[2025-06-02 14:20] LABS: Calcium Oxalate Crystals Ur 1+ /hpf (<or=2+); Red Blood Cells-Urine > 100 SEEN /hpf (0-5); Squamous Epithelial Cells - UA 0-5 SEEN /hpf (5-10)
[2025-06-02 14:27] LABS: Internal QC Validated? YES +Cl - CLEAR BKGD; Pregnancy, Serum, hCG Quali. NEGATIVE Negative; Record Kit Lot#, Serum Preg. 980607
--- NOTE | 2025-06-02 14:31 | CT_ITS ---
PROCEDURE: ABDOMEN/PELVIS WITHOUT CONT 06/02/2025 REASON FOR EXAM: KIDNEY STONE TECHNIQUE: Procedure Code: [id number] Modality: CT Procedure: ABDOMEN/PELVIS WITHOUT CONT Noncontrast technique limits evaluation of the abdominal and pelvic viscera. Coronal and Sagittal reconstruction series were provided. One or more dose reduction techniques were used (e.g., Automated exposure control, adjustment of the mA and/or kV according to patient size, use of iterative reconstruction technique). RADIATION DOSE SUMMARY: CTDlvol: 6.99 mGy DLP: 352.83 mGycm COMPARISON: None FINDINGS: There is a 1.1 x 1.3 x 1.7 cm radiopaque calculus in the proximal right ureter. There is moderate right hydronephrosis. Left kidney is unremarkable. Urinary bladder is nondistended. Lung bases are clear. Liver: Unremarkable Gallbladder: Normal Spleen: Unremarkable Pancreas: Unremarkable Adrenals: Within normal limits Reproductive Organs: Within normal limits Bowel: Unremarkable Appendix: Not definitely visualized Lymph nodes: No suspicious lymph node enlargement. Vasculature: Within normal limits Peritoneum / Retroperitoneum: No ascites Bones: Unremarkable CT/Abdomen/Pelvis without Cont IMPRESSION: 1. Right hydronephrosis secondary to a 1.7 cm stone in the proximal right urete r. Reading Location: [id number]
[2025-06-02 14:33] LABS: Anion Gap 14 (5-15); BUN 15 mg/dL (4-19); BUN/Creat Ratio 21.7 RATIO (10-20); Calcium,Total 9.5 mg/dL (7.6-11.0); Carbon Dioxide 22.1 mmol/L (21.0-32.0); Chloride 101 mmol/L (98-108); Estimated Creatinine Clearance 95.63 ml/min (50-250); Glucose 98 mg/dL (70-99); Potassium 3.9 mmol/L (3.3-5.1)
[2025-06-02] MEDS: HYDROmorphone 0.5 MG/0.5 ML SYRINGE IV (15:02)
--- NOTE | 2025-06-02 15:09 | EDS_ITS ---
HPI History of Present Illness Chief Complaint: Flank Pain Informant: patient Onset/Context/Timing Onset: Today Context: Sudden Onset Timing: Continuous Current Severity: Severe Associated Symptoms Associated Symptoms: nausea and vomiting Narrative Narrative: This is a 34-year-old female who presents to the emergency department with right flank pain. Onset was this morning upon waking up. She has sharp right flank pain associated with nausea and vomiting. Vomiting has been nonbilious and on bloody. Patient has had dark urination but no dysuria or hematuria. No urinary frequency or urgency. Patient has had 2 prior kidney stones in the past and this feels similar. No abdominal pain. No abnormal vaginal discharge or bleeding. She denies . No chest pain or shortness of breath. No fevers or chills. Patient had prior kidney stones when she was in grade school and again in college that needed surgical lithotripsy and removal. She is not established with any urologist here. Prior similar symptoms: Yes PFSH PFS Medical History (Updated 05/28/25 @ 09:[address] Shivani Horner MD) Preventative health care Vaginal delivery HSV-1 (herpes simplex virus 1) infection Oligohydramnios depression COVID-19 affecting , antepartum Kidney stone Home Medications ?Medication ?Instructions ?Recorded ?Last Taken ?Type vitamin no.56-iron 35 mg 1 cap PO DAILY pregn jamia 05/07/24 06/01/25 History and 5 mg-folic acid 1 mg-dha capsule (OB Complete Petite) breast pump #1 ea 12/07/24 Unknown Rx acetaminophen 500 mg capsule 1,000 mg PO Q6H PRN fever or pain 06/02/25 06/02/25 History Allergy/AdvReac Type Severity Reaction Status Date / Time cefdinir (From Omnicef) Allergy Unknown Hives Verified 06/02/25 13:18 Family History Grandmother Breast cancer Grandmother Breast cancer Father CVA (cerebral vascular accident) Hypertension Surgical History History of extraction of renal calculus Social History adopted: No household members: spouse and children number of children: 2 current occupational status: employed 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 current occupational exposures/hazards: No pets and animals: No history of recent travel: No sexually active: Yes Smoking Status: Former smoker quit date: 05/11/16 how long ago did patient quit smokin years ago- socialk smoking only in college alcohol intake: current alcohol intake frequency: holidays/special occasions only details: not while substance use type: does not use well-balanced diet: daily or most days caffeine: Yes Type: coffee Number of servings: 1 eating out: rarely or never during the past year weight has: remained stable what type of physical activity do you participate in: none philip/hinduism: Rastafarian seatbelt use: always do you feel safe at home: Yes 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 history: -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 ROS ED Constitutional Constitutional ED: Reports as per HPI; Denies chills, fever(s) or headache(s) ENT ENT ED: Denies nasal congestion or nasal discharge Cardiovascular Cardiovascular: Denies chest pain Respiratory/Chest Respiratory/Chest: Denies dyspnea Gastrointestinal Gastrointestinal: Reports nausea and vomiting; Denies constipation or diarrhea Genitourinary Genitourinary ED: Reports flank pain; Denies burning urination, dysuria, hematuria or urinary frequency Musculoskeletal Musculoskeletal: Denies myalgias Integumentary Denies rash Neurologic Neurologic: Denies headache(s) Psychiatric Psychiatric: Reports none Endocrine Endocrinology: Denies fatigue Hematologic/Lymphatic Hematologic/Lymphatic: Reports none Allergic/Immunologic Allergic/Immunologic ED: Reports none EXAM Physical Exam Const Vital Signs: 06/02/25 13:16 Temperature 97.8 F Temperature Source Oral Pulse Rate 97 Respiratory Rate 18 Blood Pressure 113/80 Blood Pressure Mean 91 Pulse Ox 99 Oxygen Delivery Method Room Air Positive well nourished, well developed, oriented x3 and healthy appearing Constitutional Narrative: In acute distress due to pain General Appearance ED: active, cooperative and well developed Orientation / Consciousness: awake and oriented to person Exam Limitations: no limitations Nutritional Appearance: Negative for overweight HEENT Reports normocephalic, head/scalp atraumatic, TM's clear, moist mucous membranes, nasal mucous membranes and turbinates normal and oropharynx normal normocephalic, normal to inspection and atraumatic Face and Sinus: normal facial exam Nose: external nose normal and nares normal External Ear: external ears normal Tympanic Membrane ED: Yes TM's clear Mouth ED: Yes oral and palatal mucosa normal, Yes lips normal and Yes tongue normal Mouth: oral and palatal mucosa normal, lips normal and tongue normal Throat: posterior oropharynx normal Eyes PERRL, EOMs intact bilaterally and conjunctivae normal General Eye ED: Yes normal appearance of both eyes Visual Acuity: acuity normal Eyelid: eyelids normal Conjunctiva: conjunctiva normal Sclera: sclera normal Cornea: cornea normal Pupil: PERRL and accommodation reflex normal EOM: EOM abnormal Neck full ROM Lymph Lymphatic: no lymphadenopathy noted Chest Wall inspection of chest normal Chest: abnormal inspection of the chest Resp normal respiratory effort and normal air movement Effort and Inspection: able to speak in complete sentences and symmetric chest movement Auscultation: clear to auscultation bilaterally Cardio regular rate and regular rhythm Rate: regular rate Peripheral Pulses: pulses 2+ throughout GI normal to inspection, nondistended, normoactive bowel sounds Rectal Exam: deferred Negative for no CVA tenderness Back/Spine normal ROM and normal to inspection General Back: CVA tenderness right Cervical Spine: cervical ROM normal Extremity normal to inspection, full ROM and normal capillary refill Neuro oriented x3, CN's II-XII intact bilaterally, moves all extremities and no focal motor deficits Sensorium / Orientation: awake and alert Motor Exam: strength 5/5 throughout Psych mental status grossly normal Appearance: grossly normal and appropriate Speech: normal speech Skin no rashes or lesions noted MDM MDM MDM Narrative Medical decision making narrative: Patient presents with right flank pain, nausea and vomiting. Differential diagnosis includes but is not limited to UTI versus pyelonephritis versus renal colic from a kidney stone. Patient given IV fluids, Toradol, morphine and Zofran. Patient had ongoing pain and was also given 1 dose of Dilaudid. Urinalysis has hematuria but also contains increased white blood cells and leukocytes. Given the patient's cephalosporin allergy she was given 1 dose of IV levofloxacin in the emergency department. The rest of her lab work reviewed she otherwise has a leukocytosis with a white count of 12.4. Renal function preserved. No significant electrolyte abnormalities. CT of the abdomen pelvis shows right hydronephrosis secondary to a 1.7 cm stone in the proximal right ureter. Lab Data Labs: Laboratory Results - last 24 hr 06/02/25 14:00 WBC 12.4 H RBC 5.01 Hgb 14.2 Hct 43.8 MCV 87.4 MCH 28.3 MCHC 32.4 RDW Std Deviation 41.9 RDW Coeff of Issac 13.2 Plt Count 452 H MPV 10.1 Immature Gran % (Auto) 0.400 Neut % (Auto) 87.4 H Lymph % (Auto) 9.5 L Mathews % (Auto) 2.3 Eos % (Auto) 0.1 Baso % (Auto) 0.3 Absolute Neuts (auto) 10.8 H Absolute Lymphs (auto) 1.17 Nucleated RBC % 0 Sodium 138 Potassium 3.9 Chloride 101 Carbon Dioxide 22.1 Anion Gap 14 BUN 15 Creatinine 0.70 Estim Creat Clear Calc 95.63 Est GFR (MDRD) Non-Af 117 BUN/Creatinine Ratio 21.7 H Glucose 98 Calcium 9.5 Serum , Qual NEGATIVE Urine Color Yellow Urine Clarity Sl. Cloudy Urine pH 6.0 Ur Specific [place] 1.025 Urine Protein 500 H Urine Glucose (UA) Normal Urine Ketones 50 H Urine Occult Blood 250 H Urine Nitrite Negative Urine Bilirubin Negative Urine Urobilinogen Normal Ur Leukocyte Esterase 100 H Urine RBC > 100 SEEN Urine WBC 10-25 SEEN Ur Squamous Epith Cells 0-5 SEEN Calcium Oxalate Crystal 1+ Urine Bacteria 0 SEEN Urine Mucus 0 SEEN Radiography Diagnostic Testing: Clinical Impression(s) from Imaging Studies Abdomen/Pelvis CT 06/02/25 14:31 IMPRESSION: 1. Right hydronephrosis secondary to a 1.7 cm stone in the proximal right ureter. Reading Location: [facility] Discharge Plan Triage Chief Complaint: Flank Pain ED Provider: Mackenzie Jason Dx/Rx/DC Orders Prescriptions: No Action (DME) breast pump Device See Rx Instructions .ROUTE .MEDSUPPLY Qty: 1 0RF Rx Instructions: As directed OB Complete Petite 35 mg iron-5 mg iron-1 mg capsule 1 cap PO DAILY acetaminophen 500 mg capsule 1,000 mg PO Q6H PRN (Reason: fever or pain) Primary Care Provider: Shivani Horner Referrals: Shivani Horner MD [Primary Care Provider, Internal Medicine] Print Language: Yoruba
[2025-06-02 15:16] VITALS: BP 116/83; PULSE 72; RESP 16; O2SAT 98
[2025-06-02] MEDS: levoFLOXacin IV 500 MG/100 ML BAG 100 MG IV (15:17)
--- NOTE | 2025-06-02 16:46 | ED.RN ---
Pt is , but brought her own pump. Denies needs related to
[2025-06-02 17:00] VITALS: BP 102/62; PULSE 89; RESP 16; O2SAT 99
[2025-06-02 17:57] VITALS: BP 106/62; PULSE 89; RESP 16; TEMP 36.8; O2SAT 99
== END 2025-06-02 18:00 | disposition short-term general hospital (02) ==
LOC: ED 14:16
PROVIDERS: Emergency Provider Emergency Medicine; PCP Internal Medicine; Visit Provider Emergency Medicine
DX: N13.2 Hydronephrosis with renal and ureteral calculous obstruction (principal); R31.9 Hematuria, unspecified; D72.829 Elevated white blood cell count, unspecified; Z88.2 Allergy status to sulfonamides; Z87.891 Personal history of nicotine dependence
CPT/HCPCS: 74176; 80048; 81001; 84703; 85025; 96361; 96365; 96366; 96375; 99284; A4216; J2405

== ENCOUNTER 2025-06-13 14:09 | Day surgery (SDC) | payer OTHER, SELFPAY ==
[2025-06-13] VITALS (11 sets, daily range): BP systolic 103–114; BP diastolic 65–77; PULSE 78–101; RESP 14–16; TEMP 36.1–36.7; O2SAT 96–100; BMI 24.1
[2025-06-13 14:34] LABS: Internal QC Validated? YES +Cl - CLEAR BKGD; Pregnancy, Urine Negative Negative
[2025-06-13 14:35] LABS: Record Kit Lot#,Urine Preg 980607
[2025-06-13] MEDS: Lactated Ringers 1,000 ML 15 ML IV (14:35)
--- NOTE | 2025-06-13 14:55 | PCM.PRE.AN2 ---
ASA Classification* ASA Classification ASA Classification: 2 (Hx oligohydraminos, depression, former smoker ) Assessment & Plan Anesthesia* Anesthesia Assessment Anesthesia Assessment: Discussed sedation and/or anesthesia options, risks, benefits, and alternatives with patient/parents/legal guardian/POA. Questions invited. The patient/parents/legal guardian/POA seems to understand and agrees to proceed with anesthesia plan. Reviewed the physical assessment, medical history, allergy history and patient home medications list prior to surgery/procedure/anesthetic and documented any changes. Performed airway and anesthesia risk assessments. Anesthesia Type Anesthesia Type: General History Source History Obtained from:: Patient and Chart Anesthesia Focused Assessment* Temperature: 98.1 F Pulse Rate: 85 Blood Pressure: 114/73 Respiratory Rate: 16 Pulse Ox: 96 Airway Assessment Mouth opens: >3 cm Mallampati Score: II Teeth Condition: Intact Neck Range of motion (ROM): Full ROM Labs Anesthesia Preop lab: CBC WBC, (4.4-11.0) 12.4 K/mm3 H 06/02/25, 14:00 RBC, (4.2-5.4) 5.01 M/mm3 06/02/25, 14:00 Hgb, (12.0-15.0) 14.2 g/dL 06/02/25, 14:00 Hct, (37-47) 43.8 % 06/02/25, 14:00 Plt Count, (150-450) 452 K/mm3 H 06/02/25, 14:00 CHEMISTRY Potassium, (3.3-5.1) 3.9 mmol/L 06/02/25, 14:00 Sodium, (133-145) 138 mmol/L 06/02/25, 14:00 Phosphorus, (2.5-4.9) 3.2 mg/dL 05/22/24, 09:30 BUN, (4-19) 15 mg/dL 06/02/25, 14:00 Creatinine, (0.70-1.20) 0.70 mg/dL 06/02/25, 14:00 Glucose, (70-99) 98 mg/dL 06/02/25, 14:00 TSH, (0.358-3.74) 2.19 uIU/mL 04/03/20, 09:26 COAG Urine Test Negative Negative Today, 14:15 Pre-Assessment Diagnosis/Proposed Procedure Planned Operative Procedure(s): URETEROSCOPY, LASER, STENT Anesthesia History 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 When Was Last Pacemaker Check QUESTION #4 FULL TEXT: You/Your Family Experience fever (hyperthermia) with Anesthesia Last Oral Intake Last Oral intake: Last Oral Intake NPO since 10:30 06/13/25 14:26 Meds taken in AM with sips of No 06/13/25 14:26 water? Meds patient instructed to take am of surgery PONV PONV - fruit press operator: PONV - fruit press operator Female Yes 06/08/25 14:43 HX of Motion Sickness No 06/08/25 14:43 HX of N/V After Surgery No 06/08/25 14:43 Non-Smoker Yes 06/08/25 14:43 Duration of Surgery greater No 06/08/25 14:43 than 60 minutes Number of Risk Factors 2 06/08/25 14:43 PONV Score Moderate Risk 06/08/25 14:43 Height & Weight Height & Weight: Anesthesia: Height & Weight Height 5 ft 1 in 06/13/25 14:26 Weight: 58 kg 06/13/25 14:26 Body Mass Index (BMI) 24.1 06/13/25 14:26 Respiratory Assessment Respiratory Assessment - fruit press operator: Respiratory Tract Infection Hx - fruit press operator Hx Respiratory Tract Infection No 06/08/25 14:43 STOP Sleep Apnea STOP Sleep Apnea - fruit press operator: STOP Sleep Apnea - fruit press operator Hx Hypertension No 06/08/25 14:43 Hx Sleep Apnea No 06/08/25 14:43 CPAP BIPAP Do you snore loudly (louder No 06/08/25 14:43 than talking or can be heard Do you often feel tired/ No 06/08/25 14:43 fatigued/ sleepy during daytime? Has anyone observed you stop No 06/08/25 14:43 breathing during sleep? STOP Results Negative 06/08/25 14:43 QUESTION #5 FULL TEXT : Do you snore loudly (louder than talking or can be heard through closed doors)? Tobacco Use History Tobacco Use History - fruit press operator: Tobacco Use History - fruit press operator Tobacco Use Smoking Status Former smoker 06/08/25 14:43 Hx Tobacco Use No 06/08/25 14:43 Years Smoking Packs Smoked per Day Smoking Cessation Date was Yes - quit smoking within 15 06/08/25 14:43 within the last 15 years years Hx Smoking Cessation Date 08/09/17 06/08/25 14:43 Hx Smoking Cessation Counseling Hematologic Medial History Hematologic Hx - fruit press operator: Hematologic Medical Hx - stoker erector Hx of Blood Transfusion No 06/08/25 14:43 Hx of Transfusion in last 3 No 06/08/25 14:43 Months Date of Last Transfusion (if within last 3 months) Ever experience any problems No 06/08/25 14:43 with transfusion(s)? Specify any problems Hx of Preganancy in last 3 N/A 06/08/25 14:43 Months Nurse Filling Out Transfusion NBUCHER 06/08/25 14:43 & Questions: Date: 06/08/25 06/08/25 14:43 Time: 14:44 06/08/25 14:43 Patient unable to answer at this time (ie. confused, unrespo /Reproduction History /Reproductive History - fruit press operator: /Reproductive Hx- fruit press operator Hx Now No 06/08/25 14:43 Gestational Age (in weeks): EDC: Hx Hx Para Hx Section SAB Yes 06/08/25 14:43 Does the father of the baby or his family experience fever w Father of the baby Malignant Hypertension history comment Active Medications Active Medications: Current Medications Generic Name Dose Route Start Last Admin Trade Name Freq PRN Reason Stop Dose Admin Lactated Ringer's 1,000 mls @ 15 mls/hr 06/13/25 14:30 06/13/25 14:35 IV 15 mls/hr .Q48H LACHELLE Administration PFSH Medical History (Updated 06/08/25 @ 14:46 by Rajwinder Spivey) Wears glasses History of kidney stones Former smoker Preventative health care Vaginal delivery Oligohydramnios depression HSV-1 (herpes simplex virus 1) infection COVID-19 affecting , antepartum Kidney stone Home Medications ?Medication ?Instructions ?Recorded ?Last Taken ?Type vitamin no.56-iron 35 mg 1 cap PO DAILY 05/07/24 06/12/25 History and 5 mg-folic acid 1 mg-dha capsule (OB Complete Petite) breast pump #1 ea 12/07/24 Unknown Rx acetaminophen 500 mg capsule 1,000 mg PO Q6H PRN fever or pain 06/02/25 06/02/25 History Allergy/AdvReac Type Severity Reaction Status Date / Time cefdinir (From Omnicef) Allergy Unknown Hives Verified 06/13/25 14:24 Family History Grandmother Breast cancer Grandmother Breast cancer Father CVA (cerebral vascular accident) Hypertension Surgical History (Updated 06/08/25 @ 14:46 by Rajwinder Spivey) History of extracorporeal shockwave lithotripsy (ESWL) History of extraction of renal calculus Social History adopted: No household members: spouse and children number of children: 2 current occupational status: employed 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 occupational 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/hazards: No pets and animals: No history of recent travel: No sexually active: Yes Smoking Status: Former smoker quit date: 05/11/16 how long ago did patient quit smokin years ago- socialk smoking only in college alcohol intake: current alcohol intake frequency: holidays/special occasions only details: not while substance use type: does not use well-balanced diet: daily or most days caffeine: Yes Type: coffee Number of servings: 1 eating out: rarely or never during the past year weight has: remained stable what type of physical activity do you participate in: none philip/adventist: Anabaptism seatbelt use: always do you feel safe at home: Yes 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 Physical Exam Const alert, oriented x3 and average body habitus Resp normal respiratory effort, normal air movement and clear to auscultation bilaterally Cardio regular rate, regular rhythm, no murmurs and diaphoretic
[2025-06-13] MEDS: Midazolam 2 MG/2 ML Syringe IV (15:20)
[2025-06-13] MEDS: Lidocaine 1% (5 ml sdv) 5 ML Vial IV (15:22)
[2025-06-13] MEDS: fentaNYL 100 MCG/2 ML Ampul IV (15:32)
--- NOTE | 2025-06-13 16:31 | DCINST_ITS ---
Discharge Instructions
--- NOTE | 2025-06-13 16:31 | PCM.DC ---
Discharge Instructions DC O2, CPAP, BIPAP needs Home O2 Discharge instructions: No Dressing / Incision Discharge Activity: Return to Normal Activity and May Not Drive (while taking narcotic pain medications.) Dressing / Incision Call your doctor if you observe: Fever of 101 or Higher Follow Up Care Please Follow Up With: Isac Dixon MD When: Call [phone] for an appointment Test Results: Test results from this visit will be discussed in further detail at your follow-up appointment, if applicable. Discharge Plan Admission Primary Reason for Your Visit: laser of left kidney stone Attending Provider: Isac Dixon Primary Care Provider: Shivani Horner Instructions Print Language: Vietnamese Discharge Orders/Prescriptions Prescriptions: New tamsulosin [Flomax] 0.4 mg capsule 0.4 mg PO DAILY Qty: 10 0RF ciprofloxacin HCl [Cipro] 500 mg tablet 500 mg PO BID Qty: 10 0RF phenazopyridine [Pyridium] 100 mg tablet 100 mg PO TID Qty: 15 0RF oxycodone 5 mg tablet 5 mg PO Q6H PRN (Reason: pain) 7 Days Qty: 14 0RF Continued (DME) breast pump Device See Rx Instructions .ROUTE .MEDSUPPLY Qty: 1 0RF Rx Instructions: As directed OB Complete Petite 35 mg iron-5 mg iron-1 mg capsule 1 cap PO DAILY acetaminophen 500 mg capsule 1,000 mg PO Q6H PRN (Reason: fever or pain) Referrals / Follow Up: Shivani Horner MD [Primary Care Provider, Internal Medicine] Isac Dixon MD [Med Staff - Active Staff, Urology] Disposition Disposition (needs filled in before D/C Order can be placed): Home, Self Care
--- NOTE | 2025-06-13 16:33 | OP.PCM_ITS ---
Operative Report (Standard)
--- NOTE | 2025-06-13 16:33 | PCM.OPRPT ---
Operative Report (Standard) Operative Information Date of Procedure: 06/13/25 Pre-Operative Diagnosis: Right kidney stone large Post-Operative Diagnosis: The same Surgery/Procedure Performed: Cystoscopy right ureteroscopy laser lithotripsy of stone and right stent placement director behavioral health: No Type of Anesthesia: General RN Documented Start/Stop Times: Operation Date: 06/13/25 16:45 Case Time Into Pre-Op 06/13/25 14:13 Out of Pre-Op 06/13/25 15:11 Anesthesia Start 06/13/25 15:15 Into Room 06/13/25 15:15 Procedure Start 06/13/25 15:31 Procedure End 06/13/25 16:27 Procedure Start Time: 15:31 Procedure Stop Time: 16:33 Select all DRAINS/GRAFTS/IMPLANTS that apply: Drains Drain details: 6 Bahamian by 26 cm stent Estimated Blood Loss: None Specimen collected: No Description of surgery: 34-year-old female who had a large stone in the right kidney she had a stent placed in an outside hospital some in the office for consultation organ set up today for ureteroscopy and laser lithotripsy of stone and stent placement she does understand that is possible she may need a second procedure to treat the stone or any fragments Patient was taken back to the operating room after induction of anesthesia she was intubated muscle relaxation was initiated placed in dorsolithotomy position the urethrovaginal area prepped and draped in usual fashion went into the bladder with a 21 Bahamian rigid cystourethroscope grabbed the existing stent put a wire up the stent and put a second safety wire up into the kidney and over the working wire went in with a flexible ureteroscope we used manual hand pump irrigation I used a 270 ?m laser fiber and the thulium laser laser settings were 80 Hz 0.4 J and 6 Hz and 3 J. I used fragmentation and an dusting setting and lasered the large stone completely into small little pieces once I completely lasered the stone all into tiny pieces that should pass on their own inspected the entire kidney is a successful lasering and did take a long time the laser at least a good 45 minutes to laser the stone completely I then worked my way down the ureter put a wire up into the kidney over the wire I placed a stent stent coil in the kidney bladder in good position let the string of the stent but cut it short for air to avoid early extraction and patient with anesthetic was reversed and I will see her next week for cystoscopy stent removal in the office.. Surgical Findings: Stone lasered completely into small pieces Complications Complications: No Admit VTE Documentation VTE Present on Admission: No VTE Mechan Device Prophylaxis: SCD's
--- NOTE | 2025-06-13 16:42 | POSTOP.ANE_ITS ---
Anesthesia: Postop Eval I
--- NOTE | 2025-06-13 16:42 | PCM.POST.ANE ---
Anesthesia: Postop Eval I Current Vital Signs Temperature: 97.3 F Pulse Rate: 101 Blood Pressure: 110/67 Respiratory Rate: 14 Pulse Ox: 100 Assessment Airway patent: Yes Spontaneous unlabored respirations: Yes nausea: No Vomiting: No Anesthesia Complication: No Fluid Hydration Crystalloid volume administer (ml): 1,500 Total IV fluid infused: 1,500 Progress Note Anesthesia document: Postop Eval 1 completed: Yes
[2025-06-13] MEDS: Ketorolac 30 MG/ML Syringe IV (16:48)
--- NOTE | 2025-06-13 18:08 | POSTOPAN2_ITS ---
Anesthesia Postop Eval I Sum
--- NOTE | 2025-06-13 18:08 | PCM.POSTANE2 ---
Anesthesia Postop Eval I Sum Postop Eval Completion status Anesthesia document: Postop Eval 1 completed: Yes Anesthesia Postop Eval I Summary Anesthesia Postop Eval I Summary: Anesthesia Postop Eval I: Assessment Summary Airway patent Yes 06/13/25 16:42 [email or web address] Spontaneous unlabored Yes 06/13/25 16:42 [email or web address] respirations Mental status nausea No 06/13/25 16:42 [email or web address] Vomiting No 06/13/25 16:42 [email or web address] Anesthesia Postop Eval I: Fluid Summary Crystalloid volume administer 1,500 06/13/25 16:42 [email or web address] (ml) Colloids volume administered ( ml) Blood Product volume administered (ml) Total IV fluid infused 1,500 06/13/25 16:42 [email or web address] Anesthesia Postop Eval I: Summary Notes Anesthesia Complication No 06/13/25 16:42 [email or web address] Anesthesia Complication Comment: Post-operative progress note Anesthesia: Postop Eval II Evaluation Mental status: Awake Pain Level: 0 nausea: No Vomiting: No Complications Anesthesia Complication: No
== END 2025-06-13 18:13 | disposition home or self-care (01) ==
LOC: SDC 14:10 → AC 14:11
PROVIDERS: Anesthesiology; PCP Internal Medicine; Referring Provider Urology; Visit Provider Urology
PROC: 0TJ98ZZ Inspection of Ureter, Via Natural or Artificial Opening Endoscopic (ICD-10-PCS; CPT 52352; principal; 2025-06-13 16:35)
DX: N20.0 Calculus of kidney (principal); Z87.891 Personal history of nicotine dependence; Z87.442 Personal history of urinary calculi
CPT/HCPCS: 52356; 00918; 76000; 81025; C1769; C2617; J0744; J2405